=== PATIENT | male | born 1945 | race Caucasian/White ===

== ENCOUNTER 2018-07-22 10:24 | Outpatient (CLI) | payer MEDICARE ==
--- NOTE | 2018-07-22 11:37 | RAD ---
CHEST 2 VIEWS: Date: 07/22/18 HISTORY: Productive cough. COMPARISON: 05/17/18. FINDINGS: Atherosclerosis of aorta. Normal cardiac silhouette. Pulmonary vessels and hilum are normal. Costophr enic angles are clear. No consolidation or masses. Lungs are hyperinflated. No pneumothorax or osseou s abnormalities. Stable stent projecting over the left axilla. IMPRESSION: 1. Hyperinflation. Chronic changes. No acute cardiopulmonary process. 2. Atherosclerosis. POS: [facility]
== END 2018-07-22 10:25 | disposition home or self-care (01) ==
LOC: BICRAD 10:24
PROVIDERS: ATTEND Internal Medicine Nephrology
DX: R05 Cough (principal); I70.0 Atherosclerosis of aorta; R91.8 Other nonspecific abnormal finding of lung field
CPT/HCPCS: 71046

== ENCOUNTER 2019-01-11 09:35 | Emergency (ER) | payer MEDICARE ==
[2019-01-11] MEDS ORDERED: Lidocaine 1% w/Epinephrine 1:100K 20 ML VIAL ONE (09:46)
== END 2019-01-11 10:57 | disposition home or self-care (01) ==
LOC: ERS 09:35
DX: T82.838A Hemorrhage due to vascular prosthetic devices, implants and grafts, initial encounter (principal); F17.210 Nicotine dependence, cigarettes, uncomplicated
CPT/HCPCS: 85025; 99284; J2001

== ENCOUNTER 2019-05-06 21:24 | Emergency (ER) | payer MEDICARE ==
--- NOTE | 2019-05-06 22:08 | RAD ---
Portable frontal chest radiograph: 05/06/2019 COMPARISON: 07/22/2018 HISTORY: Productive cough with shortness of breath FINDINGS: Heart and mediastinal contours are stable. Stable atherosclerotic calcification of the aort ic arch. Stent material is seen in the left axillary region. No focal consolidation or alveolar edema. IMPRESSION: No acute findings.
[2019-05-06 22:13] LABS: #Basophils 0.1 thou/uL (0.0-0.2); #Eosinphils 0.3 thou/uL (0.0-0.7); #Lymphocytes 1.9 thou/uL (1.20-3.40); #Neutrophils 3.9 thou/uL (1.40-6.50); %Basophils 1.2 % (0.0-1.0); %Eosinophils 3.9 % (0.0-10.0); %Lymphocytes 26.4 % (21.0-51.0); %Monocytes 14.2 % (0.0-10.0); %Neutrophils 54.3 % (42.0-75.0); Hemoglobin 10.1 g/dL (14.0-18.0); Mean Corpuscular HGB CONC 31.8 g/dL (32.0-36.0); Mean Corpuscular Hemoglobin 29.9 pg (27.0-31.0); Mean Corpuscular Volume 94.1 fL (78.0-98.0); Mean Platelet Volume 8.6 fL (7.4-10.4); Platelet Count 167 thou/uL (130-400); RBC Distribution Width 13.7 % (11.5-14.5); White Blood Cell (WBC) Count 7.3 thou/uL (4.8-10.8)
[2019-05-06 22:36] LABS: ALT (SGPT) 10 U/L (8-55); AST (SGOT) 16 U/L (5-34); Alkaline Phosphatase 66 U/L (40-150); Anion Gap 12 mmol/L (10-20); BUN (Urea Nitrogen) 28 mg/dL (8.4-25.7); Bilirubin, Total 0.6 mg/dL (0.2-1.2); Calc. Creatinine Clearance 0 mL/min (70-130); Calcium 11.1 mg/dL (7.8-10.44); Carbon Dioxide 36 mmol/L (23-31); Chloride 97 mmol/L (98-107); Estimated GFR-MDRD 6; Globulin 2.9 g/dL (2.4-3.5); Glucose 76 mg/dL (83-110); Potassium 3.8 mmol/L (3.5-5.1); Protein, Total 6.9 g/dL (5.8-8.1); Sodium 141 mmol/L (136-145)
[2019-05-06 22:58] LABS: CKMB 1.2 ng/mL (0-6.6)
--- NOTE | 2019-05-07 12:13 | EKG ---
Test Reason : Blood Pressure : / mmHG Vent. Rate : 068 BPM Atrial Rate : 068 BPM P-R Int : 176 ms QRS Dur : 082 ms QT Int : 434 ms P-R-T Axes : 077 -32 076 degrees QTc Int : 461 ms Normal sinus rhythm Left axis deviation Septal infarct , age undetermined Abnormal ECG Confirmed by ANNEMARIE AGUSTIN D.O. ([id number]), editor city JULIUS VARGHESE ([id number]) on 05/07/2019 12:13:01 PM Referred By: Confirmed By:ANNEMARIE AGUSTIN D.O.
== END 2019-05-06 23:55 | disposition home or self-care (01) ==
LOC: ERS 21:24
DX: J20.9 Acute bronchitis, unspecified (principal); I13.2 Hypertensive heart and chronic kidney disease with heart failure and with stage 5 chronic kidney disease, or end stage renal disease; I50.9 Heart failure, unspecified; N18.6 End stage renal disease; Z87.891 Personal history of nicotine dependence; Z79.899 Other long term (current) drug therapy; Z79.82 Long term (current) use of aspirin
CPT/HCPCS: 71045; 80053; 82553; 83880; 84484; 85025; 93005; 94640; J7620

== ENCOUNTER 2019-08-22 21:51 | Inpatient (IN) | payer MEDICARE ==
[2019-08-22] MEDS ORDERED: Albuterol Sulfate 2.5 mg/0.5 ml Neb ONE (22:06)
[2019-08-22] MEDS ORDERED: Dexamethasone 10 MG/ML VIAL ONE (22:07)
[2019-08-22] MEDS ORDERED: Magnesium 2 GM/50 ML BAG (IN WATER) ONE (22:07)
[2019-08-22 22:31] LABS: #Eosinphils 0.3 thou/uL (0.0-0.7); #Lymphocytes 1.6 thou/uL (1.20-3.40); #Monocytes 0.7 thou/uL (0.11-0.59); %Basophils 0.3 % (0.0-1.0); %Eosinophils 4.5 % (0.0-10.0); %Lymphocytes 20.2 % (21.0-51.0); %Monocytes 9.5 % (0.0-10.0); %Neutrophils 65.5 % (42.0-75.0); Hemoglobin 8.6 g/dL (14.0-18.0); Mean Corpuscular HGB CONC 32.1 g/dL (32.0-36.0); Mean Corpuscular Hemoglobin 30.3 pg (27.0-31.0); Mean Corpuscular Volume 94.5 fL (78.0-98.0); Mean Platelet Volume 9.2 fL (7.4-10.4); Platelet Count 138 thou/uL (130-400); RBC Distribution Width 14.2 % (11.5-14.5); Red Blood Cell (RBC) Count 2.84 mill/uL (4.70-6.10); White Blood Cell (WBC) Count 7.7 thou/uL (4.8-10.8)
[2019-08-22 22:32] LABS: Actual Bicarbonate (HCO3a) 30.2 mEq/L (22-28); Analyzer IN Cardio ER; Base Excess (BEa) 5.5 mEq/L (-2.0 to +3.0); CO2 Tension 44.9 mmHg (35.0-45.0); Calcium, Ionized 1.11 mmol/L (1.12-1.30); Carboxyhemoglobin (COHb) 0.8 gm% (0.0-3.0); Hemoglobin (Hb) 8.5 g/dL (14.0-18.0); O2 Tension (PaO2) 96.8 mmHg (> 70.0); Potassium - ABG Lab 3.49 mmol/L (3.70-5.30); pH, Arterial 7.45 (7.35-7.45)
[2019-08-22 22:33] LABS: Puncture Site RR
[2019-08-22 22:34] LABS: ALV-art Gradient 46.715 (0-20)
[2019-08-22 22:56] LABS: ALT (SGPT) 8 U/L (8-55); AST (SGOT) 12 U/L (5-34); Albumin 3.9 g/dL (3.4-4.8); Alkaline Phosphatase 77 U/L (40-110); Anion Gap 18 mmol/L (10-20); BUN (Urea Nitrogen) 46 mg/dL (8.4-25.7); CK (CPK) 51 U/L (30-200); Calc. Creatinine Clearance 0 mL/min (70-130); Calcium 9.3 mg/dL (7.8-10.44); Carbon Dioxide 31 mmol/L (23-31); Chloride 97 mmol/L (98-107); Estimated GFR-MDRD 5; Globulin 3.2 g/dL (2.4-3.5); Glucose 92 mg/dL (83-110); Lipase 31 U/L (8-78); Potassium 3.6 mmol/L (3.5-5.1); Protein, Total 7.1 g/dL (5.8-8.1); Sodium 142 mmol/L (136-145)
--- NOTE | 2019-08-22 22:56 | PDOC.FPRHP ---
- History of Present Illness Chief Complaint: SOB History of Present Illness: Mr. Vazquez is a 74yoM who presents to the ED for increasing SOB. He has had progressively worsening cough and shortness of breath for the last 6 months. He states that the cough improves with Mucinex, but the shortness of breath acutely worsened today prompting him to come to the ED. He states he has a known history of COPD and was a smoker up until 7 days ago. He has been using 1L O2 NC at home for the last month. He has a history of NIKHIL but lost his CPAP 3 years ago when he moved. He denies any recent illnesses or sick contacts. ED Course: Decadron, Magnesium sulfate, Albuterol, Duoneb, 1L NS, Levaquin 750mg - Allergies/Adverse Reactions Allergies Allergy/AdvReac Type Severity Reaction Status Date / Time codeine Allergy Verified 08/23/19 01:35 Penicillins Allergy Verified 08/23/19 01:35 - Home Medications Medication Instructions Recorded Confirmed Type Amlodipine [Norvasc] 10 mg PO DAILY 08/23/19 08/23/19 History Calcium Acetate [Phoslo] 2 tab PO TID-WM 08/23/19 08/23/19 History Carvedilol 25 mg PO TID 08/23/19 08/23/19 History Famotidine 20 mg PO DAILY 08/23/19 08/23/19 History Pantoprazole [Protonix] 40 mg PO DAILY 08/23/19 08/23/19 History hydrALAZINE HCl [Hydralazine HCl] 50 mg PO TID 08/23/19 08/23/19 History - History PMHx: COPD ESRD on HD - Dr. Pope HTN GERD NIKHIL, untreated PSHx: L forearm fistula Ex lap FHx: Mom- HTN Social: Current tobacco user, hasn't been smoking much lately - trying to quit. States quit 7 days ago. Up to 3 packs a week since age 8. Former alcohol use, quit in 2012. Denies illicit drug use. - Review of Systems General: denies: fever/chills, weight/appetite/sleep changes, night sweats, fatigue Eyes: denies: eye pain, vision changes ENT: reports: nasal congestion, rhinorrhea Respiratory: reports: cough, shortness of breath, exercise intolerance Cardiovascular: denies: chest pain, palpitation, edema, paroxysmal nocturnal dyspnea, orthopnea Gastrointestinal: denies: nausea, vomiting, diarrhea, constipation Genitourinary: denies: dysuria, polyuria Skin: denies: rashes, lesions, jaundice Musculoskeletal: denies: pain, tenderness, stiffness Neurological: denies: numbness, syncope, weakness - Vital signs Pulse: 73, Temp: 98.4 (Oral), O2 sat: 96 on (2L Oxygen), Time: 08/22/2019 21:56. Wt: 87kg - Physical Exam Constitutional: NAD, awake, alert and oriented, well developed -Constitutional: Visibly short of breath, speaking in short phrases HEENT: normocephalic and atraumatic, PERRLA, EOMI, conjunctiva clear, grossly normal vision, grossly normal hearing, MMM Neck: supple, trachea midline Chest: no-tender to palpation Heart: pulses present, no edema -Heart: Difficult to auscultate due to breathing treatment and prominent wheezes. RRR on the radiation monitor Lungs: good air movement -Lungs: Diffuse, prominent expiratory wheezes heard throughout. Abdomen: soft, non-tender, bowel sounds present Musculoskeletal: normal structure, normal tone Neurological: no focal deficit, CN II-XII intact Skin: no rash/lesions, good turgor Heme/Lymphatic: no unusual bruising or bleeding, no purpura, no petechia Psychiatric: normal mood and affect, good judgment and insight FMR H&P: Results - Labs Result Diagrams: 08/22/19 22:20 08/22/19 22:20 Lab results: WBC 7.7 thou/uL (4.8-10.8) 08/22/19 22:20 Hgb 8.6 g/dL (14.0-18.0) L 08/22/19 22:20 Hct 26.9 % (42.0-52.0) L 08/22/19 22:20 MCV 94.5 fL (78.0-98.0) 08/22/19 22:20 Plt Count 138 thou/uL (130-400) 08/22/19 22:20 Neutrophils % 65.5 % (42.0-75.0) 08/22/19 22:20 ABG pH 7.45 (7.35-7.45) 08/22/19 22:23 ABG pCO2 44.9 mmHg (35.0-45.0) 08/22/19 22:23 ABG pO2 96.8 mmHg (> 70.0) H 08/22/19 22:23 Lactic Acid 0.6 mmol/L (0.5-2.2) 08/22/19 22:20 - EKG Interpretation EKG: NSR - Radiology Interpretation Chest x-ray Status: report reviewed by me (IMPRESSION: Minimal patchy density medial left lung base which may represent atelectasis versus developing pneumonitis. Follow- up chest x-ray is recommended to ensure resolution.) FMR H&P: A/P - Problem List (1) COPD exacerbation Current Visit: Yes Status: Acute Code(s): J44.1 - CHRONIC OBSTRUCTIVE PULMONARY DISEASE W (ACUTE) EXACERBATION (2) HTN (hypertension) Current Visit: Yes Status: Acute Code(s): I10 - ESSENTIAL (PRIMARY) HYPERTENSION (3) ESRD on dialysis Current Visit: Yes Status: Acute Code(s): N18.6 - END STAGE RENAL DISEASE; Z99.2 - DEPENDENCE ON RENAL DIALYSIS (4) GERD (gastroesophageal reflux disease) Current Visit: Yes Status: Acute Code(s): K21.9 - GASTRO-ESOPHAGEAL REFLUX DISEASE WITHOUT ESOPHAGITIS - Plan COPD exacerbation - CXR shows minimal patchy density. Recommends f/u chest x-ray to monitor for improvement. Repeat tomorrow. - Will treat with IV Levaquin (dosed for dialysis), Prednisone, and scheduled DuoNebs with Albuterol Nebs prn. - Flu negative ESRD on HD - Dr. Pope is his customer account administrator. He usually has HD on . Will consult and plan for HD tomorrow. - Continue Phoslo HTN - Will continue home medications (Coreg, Hydralazine and Amlodipine) GERD - Will continue PPI NIKHIL - Currently untreated. Recommend f/u outpatient to reestablish care with party director for CPAP. Disposition/LOS: Dispo: Stable, inpatient, likely LOS > 48 hours. Code: Full VTE: SCDs FMR H&P: Upper Level - Pertinent history 74 year old AA male presents with worsening shortness of breath prior to arrival. He states that he has had a cough for 6 months that has recently been well controlled with mucinex. He states that he has had a worsening cough with rhinorrhea for the last several days, however. He denies fever, chills, chest pain. He states that he quit smoking 7 days ago but smoked a pack q3 days since age 8 years old. He also has untreated NIKHIL as of three years now. He lost his CPAP machine in a move three years ago. He had his take him to the hospital. He states the nebulizer treatments are helping. He denies sick contacts. He states that he has not needed home O2 until about a month ago. - Pertinent findings General: Alert and oriented x3. No acute distress HEENT: MMM. Card: RRR, heart sounds difficult to appreciate due to wheezing Resp: Diffuse expiratory wheezing, nebulizer being given during exam Abdomen: Soft, nontender Ext: No cyanosis or edema - Plan Date/Time: 08/22/19 5036 I, Kia Meng, have evaluated this patient and agree with findings/plan as outlined by post graduate internship resident. Pertinent changes/additions are listed here. Acute COPD exacerbation - Longstanding history of COPD - AB.45/44.9/96.8 on 2L NC - Continue q3h Duoneb treatments with albuterol PRN in between; space out as respiratory status improves - Will start levoquin renally dosed - Prednisone 40 mg PO x5 days - Monitor respiratory status - CXR with no obvious infiltrates - Continued smoking cessation recommended ESRD on HD T, TH, S - Consult Dr. Segovia in AM for dialysis - Continue home medications - Dose medications for HD HTN - Continue home medications GERD - Continue home medications Elevated troponin - Mildly elevated, likely 2/2 renal disease - Will not trend at this time Normocytic anemia - Likely 2/2 ESRD - Uncertain if patient is getting epogen - Will do iron studies to further evaluate as I do not see a previous workup NIKHIL, untreated - Recommend outpatient sleep study for titration of CPAP - Recommend follow up with party director DVT PPX: SCD's Code status: Full Dispo: Admit to medical. Anticipate LOS >48 hours. Addendum - Attending - Attending Attestation Date/Time: 08/23/19 9209 I personally evaluated the patient and discussed the management with Dr. Walker on 08/22/2019 I agree with the History, Examination, Assessment and Plan documented above with any addition or exceptions noted below - 74yo M with h/o HTN, ESRD on HD, COPD, HLD, and NIKHIL presented to the ED for increasing SOB for 1 day. He has had progressively worsening cough and shortness of breath for the last 6 months. He states that the cough improves with Mucinex. He has been using 1L O2 NC at home for the last month. He has a history of NIKHIL but lost his CPAP 3 years ago when he moved. He denies fever/chills, nasal congestion or ill contacts. PMH/PSH/Meds /SH reviewed and agree with resident's documentation. Afebrile BP 147/60 P65 RR18 98% on 2L NC Exam repeated by me and agree with resident's findings. Labs : WBC=7.7, H/H=8.6/26.9, Mfx=878, Xa=124, K=3.6, Cl=97, CO2=31, BUN/Cr=46/12.84 , Gluc=92, LPR=138.7 A/P: 1) Acute hypoxic respiratory failure secondary to COPD exacerbation - initial O2 sats 78% now improved to 94% in ER. 2) COPD exacerbation- Continue scheduled nebs, steroids. 3) ESRD- will consult nephrology for maintenance HD, 4) Normocytic anemia- check iron stidies; most likely anemia of chronic disease due to ESRD. 5) NIKHIL- will need outpatient sleep study and eval
[2019-08-22 23:16] LABS: CKMB 1.2 ng/mL (0-6.6)
--- NOTE | 2019-08-22 23:22 | RAD ---
EXAM: CHEST ONE VIEW HISTORY: Shortness of breath and wheezing. Dyspnea. COMPARISON: 05/06/2019 FINDINGS: Cardiac silhouette is magnified by projection but stable in size. The pulmonary vasculature is within normal limits. Minimal patchy density is seen at the medial left lung base which may represent atelectasis, focal pneumonitis cannot be excluded. The lungs are otherwise clear. Vascular stent agai n overlies the left axillary vessels. Degenerative changes are again noted in the spine. Vascular calcifications are seen in the thoracic aorta. IMPRESSION: Minimal patchy density medial left lung base which may represent atelectasis versus developing pneumo nitis. Follow-up chest x-ray is recommended to ensure resolution.
[2019-08-23] MEDS ORDERED: Ondansetron ODT 4 MG TAB PO PRN (00:51)
[2019-08-23] MEDS ORDERED: Albuterol Sulfate 2.5 mg/3 ml Neb NEB PRN (00:51)
[2019-08-23] MEDS ORDERED: Acetaminophen 325 MG TAB PO PRN (00:51)
[2019-08-23] MEDS ORDERED: Calcium Carbonate 500 MG ChewTAB PO PRN (00:51)
[2019-08-23 02:11] VITALS: BMI 26.2
[2019-08-23 06:11] LABS: Iron 51 ug/dL (65-175); Iron Binding Capacity, Total 145 mcg/dL (261-462)
[2019-08-23 06:32] LABS: Ferritin 822.02 ng/mL (22-322)
[2019-08-23] MEDS ORDERED: predniSONE 20 MG TAB PO SCH (08:00)
--- NOTE | 2019-08-23 08:53 | RAD ---
Portable frontal chest radiograph: 08/23/2019 COMPARISON: 08/22/2019 HISTORY: COPD exacerbation FINDINGS: No pneumothorax. Mild pulmonary vascular prominence. Mild nonspecific increased linear dens ity noted in the medial right lung base. There is nonspecific increased density in the medial left lung base/left cardiophrenic angle, slightl y worsened when compared to prior imaging. Vascular stent material overlies the subclavian region on the left. IMPRESSION: Linear density in both lung bases, left greater than right. Findings may be related to vo lume loss or infectious pneumonitis. Recommend PA and lateral imaging of the chest for full assessment.
[2019-08-23] MEDS ORDERED: Amlodipine 10 MG TAB PO SCH (09:00)
[2019-08-23] MEDS ORDERED: guaiFENesin ER 600 MG TAB PO SCH (09:00)
[2019-08-23] MEDS ORDERED: Famotidine 20 MG TAB PO SCH (09:00)
[2019-08-23] MEDS: Calcium Acetate 667 MG CAP PO SCH ×3 (09:03→15:22)
[2019-08-23] MEDS: hydrALAZINE 25 MG TAB PO SCH ×2 (09:04→15:22)
[2019-08-23] MEDS: Carvedilol 25 MG TAB PO SCH ×2 (09:04→15:22)
--- NOTE | 2019-08-23 09:12 | PDOC.FM ---
- Subjective Subjective: Pt reports SOB has improved since admission, no new complaints, denies fever/ chills, cough has improved, he states his cough has never been productive. - Objective Vital Signs & Weight: Vital Signs (12 hours) Temp Pulse Resp BP Pulse Ox 08/23/19 09:04 63 08/23/19 09:03 63 08/23/19 08:00 97.8 F 63 18 175/68 H 98 08/23/19 06:51 98 08/23/19 06:49 65 18 98 08/23/19 05:48 97.9 F 73 20 147/60 H 97 08/23/19 03:32 95 08/23/19 03:06 65 18 97 08/23/19 02:40 94 L 08/23/19 02:19 97.7 F 65 20 156/63 H 94 L Weight Weight 80.558 kg Result Diagrams: 08/22/19 22:20 08/22/19 22:20 Phys Exam - Physical Examination Constitutional: NAD HEENT: moist MMs, sclera anicteric Neck: no nodes, no JVD Respiratory: no rales, wheezing present Cardiovascular: RRR, no significant murmur Gastrointestinal: soft, non-tender Musculoskeletal: no edema, pulses present Neurological: normal sensation, moves all 4 limbs Psychiatric: normal affect, A&O x 3 Skin: no rash, normal turgor Dx/Plan (1) COPD exacerbation Code(s): J44.1 - CHRONIC OBSTRUCTIVE PULMONARY DISEASE W (ACUTE) EXACERBATION Status: Acute (2) Anemia in chronic illness Code(s): D63.8 - ANEMIA IN OTHER CHRONIC DISEASES CLASSIFIED ELSEWHERE Status : Acute (3) Anemia in chronic kidney disease, on chronic dialysis Code(s): N18.6 - END STAGE RENAL DISEASE; D63.1 - ANEMIA IN CHRONIC KIDNEY DISEASE; Z99.2 - DEPENDENCE ON RENAL DIALYSIS Status: Acute (4) ESRD on dialysis Code(s): N18.6 - END STAGE RENAL DISEASE; Z99.2 - DEPENDENCE ON RENAL DIALYSIS Status: Acute (5) GERD (gastroesophageal reflux disease) Code(s): K21.9 - GASTRO-ESOPHAGEAL REFLUX DISEASE WITHOUT ESOPHAGITIS Status: Acute (6) HTN (hypertension) Code(s): I10 - ESSENTIAL (PRIMARY) HYPERTENSION Status: Acute - Plan Plan: Acute COPD exacerbation A- Longstanding history of COPD. on admission AB.45/44.9/96.8 on 2L NC P- Continue q3h Duoneb treatments with albuterol PRN in between; space out as respiratory status improves -continue levoquin renally dosed -Prednisone 40 mg PO x5 days -Continued smoking cessation recommended Bilateral lung infiltrate A- linear infiltrate, infectious pneumonitis vs. fluid related P- AP and lateral CXR today Anemia of chronic disease A- iron studies indicate anemia of chronic disease, likely also related to ESRD P- monitor h/h while in house, transfuse as necessary ESRD on HD T, TH, S -continue dialysis HTN -Continue home medications GERD -Continue home medications Elevated troponin -Mildly elevated, likely 2/2 renal disease. Will not trend at this time NIKHIL, untreated -Recommend outpatient sleep study for titration of CPAP. recommend follow up with chemistry lab instructor DVT PPX: SCD's Code status: Full Addendum - Attending - Attending Attestation Date/Time: 08/23/19 4341 I personally evaluated the patient and discussed the management with the team. I agree with the History, Examination, Assessment and Plan documented above with any addition or exceptions noted below. Seen in dialysis. Says he feels great and is ready to go home. He has scant expiratory wheezes. Would continue steroids + nebs and likely dc this PM.
--- NOTE | 2019-08-23 13:20 | CON ---
DATE OF CONSULTATION: 08/23/2019 CONSULTING PHYSICIAN: Dr. Lewis. REASON FOR CONSULTATION: End-stage renal disease evaluation and care. REASON FOR ADMISSION: Shortness of breath. HISTORY OF PRESENT ILLNESS: This is a 74-year-old male with history of COPD, ESRD, hypertension, GERD, obstructive sleep apnea, came to the hospital with shortness of breath. He has been treated for COPD exacerbation and gets dialysis Thursday, , and Thursday, and due for dialysis today. Nephrology was consulted. The patient was seen during dialysis, tolerating well, is feeling better. No chest pain or palpitation. No fever or chills. No nausea or vomiting. PAST MEDICAL HISTORY: Positive for end-stage renal disease, on TTS; COPD; hypertension; GERD; and NIKHIL. PAST SURGICAL HISTORY: Left arm fistula and exploratory laparotomy. HOME MEDICATIONS: Reviewed. ALLERGIES: TO CODEINE, PENICILLIN. SOCIAL HISTORY: No smoking, alcohol, or illicit drugs. FAMILY HISTORY: No history of kidney disease. REVIEW OF SYSTEMS: CONSTITUTIONAL: Negative for weight loss or gain, ability to conduct usual activities. SKIN: Negative for rash, itching. EYES: Negative for double vision, pain. ENT/MOUTH: Negative for nose bleeding, neck stiffness, pain, tenderness. CARDIOVASCULAR: Negative for palpitations, dyspnea on exertion, orthopnea. RESPIRATORY: Negative for shortness of breath, wheezing, cough, hemoptysis, fever or night sweats. GASTROINTESTINAL: Negative for poor appetite, abdominal pain, heartburn, nausea, vomiting, constipation, or diarrhea. GENITOURINARY: Negative for urgency, frequency, dysuria, nocturia. MUSCULOSKELETAL: Negative for pain, swelling. NEUROLOGIC/PSYCHIATRIC: Negative for anxiety, depression. ALLERGY/IMMUNOLOGIC: Negative for skin rash, bleeding tendency. PHYSICAL EXAMINATION: GENERAL: This is a well-built male, in no apparent distress. VITAL SIGNS: Temperature 97.8, pulse 63, respiratory rate 18, blood pressure 175/68. HEENT: Atraumatic, normocephalic. Oral mucosa is moist. NECK: Supple. CV: S1 and S2. Rate and rhythm regular. RESPIRATORY: Clear. GASTROINTESTINAL: Abdomen is soft. MUSCULOSKELETAL: 1+ edema. DERMATOLOGIC: No skin rash. NEUROLOGIC: Alert and awake. PSYCHIATRIC: Mood and affect normal. LABORATORY DATA: Hemoglobin is 8.6. Potassium is 3.6, BUN is 46, and creatinine is 2.8. ASSESSMENT AND PLAN: 1. End-stage renal disease, continue on dialysis as tolerated. 2. Edema, controlled. 3. History of hypertension. 4. Anemia of chronic disease. 5. Chronic obstructive pulmonary disease, per primary team. The patient is seen during dialysis, tolerating well. Continue dialysis Thursday, , and Thursday as tolerated. Thank you for the consult. Job ID: [id number]
[2019-08-23 17:01] VITALS: BP 169/69; TEMP 97.7
--- NOTE | 2019-08-24 10:00 | PQF ---
Moni Vazquez Jr, ANNA MD [id number] CLINICAL DOCUMENTATION CLARIFICATION FORM: POST DISCHARGE Addendum to original discharge summary date: ____ Late entry note date: __ DATE:08/24/2019 ATTN: JESUS OCONNELL MD Please exercise your independent, professional judgment in responding to the clarification form. Clinical indicators are provided on the bottom of this form for your review Please check appropriate box(s) to clarify if the following diagnosis has been ruled in or ruled out:Pneumonia [ ] Ruled in diagnosis [ ] Continue to treat [ ] Resolved [ ] Ruled out diagnosis [ ] Cannot rule out diagnosis [ ] Other diagnosis [ ] Unable to determine In addition, please specify: Present on Admission (POA): [ ] Yes [ ] No [ ] Unable to determine For continuity of documentation, please document condition throughout progress notes and discharge summary. Thank You. CLINICAL INDICATORS - SIGNS / SYMPTOMS / LABS Pneumonia with hypoxia-Documented in ED 08/22 by Riley Shafer He has had progressively worsing cough and SOB for the last 6 months-Documented in H&P on 08/22 by Demetria Walker MD COPD Exacerbation -Documented in H&P on 08/22 by Demetria Walker MD CXR shows minimal patchy density. recommends f/u chest x ray to monitor for improvement.Repeat tomorrow-Documented in H&P on 08/22 by Demetria Walker MD CXR with no obvious infiltrates-Documented in H&P on 08/22 by Demetria Walker MD Acute hypoxic respiratory failure secondary to COPD exacerbation-Documented in H &P on 08/22 by Demetria Walker MD Minimal patchy density medial left lung base which may represent atelectasis versus developing pneumonitis-Documented in Chest Xray on 08/22 RISK FACTORS Acute hypoxic respiratory failure secondary to COPD exacerbation-Documented in H &P on 08/22 by Demetria Walker MD TREATMENTS Will treat with IV Levaquin-Documented in H&P on 08/22 by Demetria Walker MD Monitor respiratory status-Documented in H&P on 08/22 by Demetria Walker MD Continued smoking cessation recommended -Documented in H&P on 08/22 by Demetria Walker MD (This form is maintained as a part of the permanent medical record) 2014 [employer]. All Rights Reserved [email or web address] [not provided] MTDD
--- NOTE | 2019-08-24 10:37 | DIS ---
DATE OF ADMISSION: 08/22/2019 DATE OF DISCHARGE: 08/23/2019 RESIDENT: Javier Ballard MD. ADMITTING ATTENDING: Sofya Steinberg MD. DISCHARGE ATTENDING: Tony Mix MD. CONSULTS: None. PROCEDURES: 1. On 07/22/2020, chest x-ray. Impression: Minimal patchy density medial left lung base, which may represent atelectasis versus developing of pneumonitis. Chest x -ray was recommended to ensure resolution. 2. On 08/23/2019, chest x-ray. Impression: Linear density in both lung bases, left greater than right. Findings may be related to volume loss or infectious pneumonitis. Recommend PA and lateral imaging of the chest for full assessment. DISCHARGE MEDICATIONS: 1. Albuterol nebulization q.2 hours p.r.n. 2. Mucinex 600 mg p.o. q.12 hours, resumed at home. 3. Dulera inhaler 2 puffs inhaled b.i.d. 4. Prednisone 40 mg p.o. daily for 4 more days. 5. Calcium acetate 2 tabs p.o. t.i.d. 6. Famotidine 20 mg p.o. daily. 7. Carvedilol 25 mg p.o. t.i.d. 8. Protonix 20 mg p.o. daily. 9. Hydralazine 5 mg p.o. t.i.d. 10. Amlodipine 10 mg p.o. daily. DISCONTINUED MEDICATIONS: None. PRIMARY DIAGNOSIS: Chronic obstructive pulmonary disease exacerbation. SECONDARY DIAGNOSES: 1. Bilateral lung infiltrate. 2. Anemia of chronic disease. 3. End-stage renal disease, on hemodialysis. 4. Hypertension. 5. Elevated troponins. 6. Obstructive sleep apnea. HISTORY OF PRESENT ILLNESS/HOSPITAL COURSE: This is a 74-year-old male who presented to the hospital and was admitted for COPD exacerbation. He was given Solu-Medrol and started on scheduled p.r.n. DuoNebs. The patient recovered very quickly and returned to baseline within 12 hours with this treatment alone and deemed stable for discharge home with increased regimen on COPD. Currently, he had only albuterol and was on 1 L of oxygen at baseline and so Dulera was sent in for dual LAMA and LABA inhaler. Otherwise, hospital course was complicated by a chest x-ray, which showed possible infiltrate and recommended repeat chest x-ray as listed above. However, clinical exam was benign and the patient showed no signs or symptoms of infection. So, he was discharged home without antibiotics. DISPOSITION: Stable. DISCHARGE INSTRUCTIONS: Location: Home. Activity: As tolerated. Followup: Follow up with PCP in 7 days. Diet: Heart healthy dilated diet. Job ID: [id number] MTDD
[2019-08-25 16:09] LABS: Hematocrit 24.4 % (37.5-51.0); RBC Folate Test Component 939 ng/mL (>498)
== END 2019-08-23 17:21 | disposition home or self-care (01) | DRG 189 ==
LOC: ERS 21:51 → T4-B 23:06
PROVIDERS: ADMIT Family Medicine; ATTEND Family Medicine
DX: J96.01 Acute respiratory failure with hypoxia (principal); N18.6 End stage renal disease; J44.1 Chronic obstructive pulmonary disease with (acute) exacerbation; I12.0 Hypertensive chronic kidney disease with stage 5 chronic kidney disease or end stage renal disease; D63.1 Anemia in chronic kidney disease; K21.9 Gastro-esophageal reflux disease without esophagitis; Z99.2 Dependence on renal dialysis; G47.33 Obstructive sleep apnea (adult) (pediatric); Z88.5 Allergy status to narcotic agent; Z88.0 Allergy status to penicillin; F17.200 Nicotine dependence, unspecified, uncomplicated; R91.8 Other nonspecific abnormal finding of lung field
CPT/HCPCS: 36415; 71045; 80053; 82550; 82553; 82607; 82728; 82747; 82805; 83540; 83550; 83605; 83690; 83880; 84484; 85014; 85025; 87040; 87804; 90935; 93005; 94640; 94644; 96365; 96366; 96367; 96375; G0257; J1100; J1956; J3475; J7611; J7620

== ENCOUNTER 2019-12-19 17:22 | Emergency (ER) | payer MEDICARE ==
[~2019-12-19 17:22] MED LIST: Iopamidol-370 76% 500 ML 1 ML ONE
[2019-12-19] MEDS ORDERED: Ondansetron PF 4 MG/2 ML Vial ONE (18:00)
[2019-12-19] MEDS ORDERED: Morphine 4 MG/ML VIAL ONE (18:00)
[2019-12-19 18:37] LABS: #Basophils 0.1 thou/uL (0.0-0.2); #Eosinphils 0.3 thou/uL (0.0-0.7); #Lymphocytes 1.1 thou/uL (1.20-3.40); #Monocytes 0.6 thou/uL (0.11-0.59); #Neutrophils 4.4 thou/uL (1.40-6.50); %Eosinophils 4.7 % (0.0-10.0); %Lymphocytes 16.9 % (21.0-51.0); %Monocytes 9.3 % (0.0-10.0); %Neutrophils 68.2 % (42.0-75.0); Hemoglobin 9.7 g/dL (14.0-18.0); Mean Corpuscular HGB CONC 31.9 g/dL (32.0-36.0); Mean Corpuscular Hemoglobin 30.1 pg (27.0-31.0); Mean Corpuscular Volume 94.5 fL (78.0-98.0); Mean Platelet Volume 10.8 fL (7.4-10.4); Platelet Count 121 thou/uL (130-400); RBC Distribution Width 17.9 % (11.5-14.5); Red Blood Cell (RBC) Count 3.23 mill/uL (4.70-6.10); White Blood Cell (WBC) Count 6.4 thou/uL (4.8-10.8)
[2019-12-19 18:59] LABS: ALT (SGPT) 22 U/L (8-55); AST (SGOT) 59 U/L (5-34); Albumin 3.9 g/dL (3.4-4.8); Alkaline Phosphatase 79 U/L (40-110); Anion Gap 16 mmol/L (10-20); BUN (Urea Nitrogen) 33 mg/dL (8.4-25.7); Bilirubin, Total 1.8 mg/dL (0.2-1.2); CK (CPK) 72 U/L (30-200); Calc. Creatinine Clearance 0 mL/min (70-130); Calcium 9.2 mg/dL (7.8-10.44); Carbon Dioxide 32 mmol/L (23-31); Chloride 98 mmol/L (98-107); Estimated GFR-MDRD 5; Globulin 2.8 g/dL (2.4-3.5); Glucose 98 mg/dL (83-110); Lipase 25 U/L (8-78); Potassium 3.4 mmol/L (3.5-5.1); Protein, Total 6.7 g/dL (5.8-8.1); Sodium 143 mmol/L (136-145)
--- NOTE | 2019-12-19 19:44 | CT ---
CT ABDOMEN WITH CONTRAST CT PELVIS WITH CONTRAST: DATE: 12-19-2019 HISTORY: 74-year-old male with right upper quadrant and right lower quadrant abdominal pain with nausea and co nstipation. Chronic renal failure. Patient on dialysis. COMPARISON: Noncontrast CT 04-28-16 FINDINGS: A large number of small cysts throughout the bilateral upper, mid, and lower pole parenchyma. Heavy a therosclerotic calcification of abdominal aorta, iliac arteries, and left renal artery. New finding of mild distention of gallbladder without pericholecystic edema. No hydronephrosis. Mild edema following the portal vein branches in the liver. Small hypodense lesion in the spleen, stable a nd benign. No splenomegaly. Unremarkable pancreas. Mild adrenal hyperplasia without definite discrete mass. Sigmoid and descending colonic diverticulosis without convincing evidence of diverticulitis. M ild diffuse fat stranding throughout the pelvic cavity, peritoneal cavity, and retroperitoneum, consi stent with edema, similar to prior CT. Appendix visualized. No convincing evidence of acute appendici tis. No abscess, pneumoperitoneum, or small bowel dilation. Empty urinary bladder. Diffuse mild anasa rca. No consolidation at lung bases or pleural effusion. IMPRESSION: 1. Distended gallbladder. 2. Mild edema throughout the abdominal cavity and minimal anasarca, probably related to chronic renal failure. 3. Very large number of small bilateral renal cysts. YEFRI Feliciano POS: [facility]
== END 2019-12-19 19:45 | disposition home or self-care (01) ==
LOC: ERS 17:22
DX: R10.9 Unspecified abdominal pain (principal); E11.22 Type 2 diabetes mellitus with diabetic chronic kidney disease; I13.2 Hypertensive heart and chronic kidney disease with heart failure and with stage 5 chronic kidney disease, or end stage renal disease; I50.9 Heart failure, unspecified; N18.6 End stage renal disease; F17.210 Nicotine dependence, cigarettes, uncomplicated; Z79.899 Other long term (current) drug therapy
CPT/HCPCS: 74177; 80053; 82550; 83605; 83690; 85025; 96374; 96375; J2270; J2405; Q9967

== ENCOUNTER 2019-12-21 18:25 | Emergency (ER) | payer MEDICARE ==
[2019-12-21] MEDS ORDERED: Morphine 4 MG/ML VIAL ONE ×2 (18:41→20:26)
[2019-12-21] MEDS ORDERED: Ondansetron PF 4 MG/2 ML Vial ONE (18:41)
[2019-12-21 18:56] LABS: #Basophils 0.1 thou/uL (0.0-0.2); #Eosinphils 0.3 thou/uL (0.0-0.7); #Lymphocytes 1.2 thou/uL (1.20-3.40); #Monocytes 0.6 thou/uL (0.11-0.59); #Neutrophils 3.5 thou/uL (1.40-6.50); %Eosinophils 6.1 % (0.0-10.0); %Lymphocytes 21.2 % (21.0-51.0); %Monocytes 10.2 % (0.0-10.0); %Neutrophils 61.6 % (42.0-75.0); Hemoglobin 10.2 g/dL (14.0-18.0); Mean Corpuscular HGB CONC 31.6 g/dL (32.0-36.0); Mean Corpuscular Hemoglobin 30.3 pg (27.0-31.0); Mean Corpuscular Volume 96.1 fL (78.0-98.0); Mean Platelet Volume 10.7 fL (7.4-10.4); Platelet Count 135 thou/uL (130-400); RBC Distribution Width 18.1 % (11.5-14.5); Red Blood Cell (RBC) Count 3.35 mill/uL (4.70-6.10); White Blood Cell (WBC) Count 5.6 thou/uL (4.8-10.8)
[2019-12-21 19:16] LABS: ALT (SGPT) 30 U/L (8-55); AST (SGOT) 21 U/L (5-34); Albumin 3.8 g/dL (3.4-4.8); Alkaline Phosphatase 86 U/L (40-110); Anion Gap 16 mmol/L (10-20); BUN (Urea Nitrogen) 24 mg/dL (8.4-25.7); Bilirubin, Total 1.2 mg/dL (0.2-1.2); Calc. Creatinine Clearance 0 mL/min (70-130); Calcium 9.1 mg/dL (7.8-10.44); Carbon Dioxide 31 mmol/L (23-31); Chloride 97 mmol/L (98-107); Estimated GFR-MDRD 6; Globulin 2.8 g/dL (2.4-3.5); Glucose 95 mg/dL (83-110); Lipase 23 U/L (8-78); Potassium 3.3 mmol/L (3.5-5.1); Protein, Total 6.6 g/dL (5.8-8.1); Sodium 141 mmol/L (136-145)
--- NOTE | 2019-12-21 20:14 | ULT ---
ULTRASOUND ABDOMEN LIMITED: (RIGHT UPPER QUADRANT) DATE: 12/21/2019 HISTORY: 74-year-old male with right upper quadrant abdominal pain FINDINGS: Gallbladder:Distended and filled with sludge. Nonshadowing dependent layer of moderately hypoechoic m aterial in the dependent portion of the proximal gallbladder body near neck. This is probably echogenic sludge. This is less likely to represent gallstones. Normal wall thickness of 2 mm. No chloé cholecystic fluid. Common duct: 5 mm. Liver:Echogenicity within normal limits. Pancreas:Mostly obscured by shadowing from overlying bowel gas. Right kidney:Large number of small cysts throughout the parenchyma. No hydronephrosis. Increased pare nchymal echogenicity suggestive of medical renal disease. IMPRESSION: 1) distended gallbladder full of sludge, plus what appears to be a dependent layer of echogenic sludg e. 2) evidence for chronic medical renal disease of the right kidney, plus large number of small right r enal cysts.
== END 2019-12-21 20:36 | disposition home or self-care (01) ==
LOC: ERS 18:25
DX: R10.11 Right upper quadrant pain (principal); I13.11 Hypertensive heart and chronic kidney disease without heart failure, with stage 5 chronic kidney disease, or end stage renal disease; N18.6 End stage renal disease; E11.22 Type 2 diabetes mellitus with diabetic chronic kidney disease; F17.210 Nicotine dependence, cigarettes, uncomplicated; Z79.82 Long term (current) use of aspirin; Z79.899 Other long term (current) drug therapy
CPT/HCPCS: 36415; 76705; 80053; 83690; 85025; 94760; 96374; 96375; 96376; J2270; J2405

== ENCOUNTER 2019-12-24 01:35 | Inpatient (IN) | payer MEDICARE, OTHER ==
[2019-12-24 02:05] LABS: #Basophils 0.1 thou/uL (0.0-0.2); #Eosinphils 0.1 thou/uL (0.0-0.7); #Lymphocytes 1.2 thou/uL (1.20-3.40); #Monocytes 0.8 thou/uL (0.11-0.59); #Neutrophils 8.4 thou/uL (1.40-6.50); %Basophils 0.7 % (0.0-1.0); %Eosinophils 0.9 % (0.0-10.0); %Lymphocytes 11.2 % (21.0-51.0); %Monocytes 7.9 % (0.0-10.0); %Neutrophils 79.4 % (42.0-75.0); Mean Corpuscular HGB CONC 30.3 g/dL (32.0-36.0); Mean Corpuscular Volume 98.9 fL (78.0-98.0); Mean Platelet Volume 9.7 fL (7.4-10.4); Platelet Count 157 thou/uL (130-400); Red Blood Cell (RBC) Count 3.68 mill/uL (4.70-6.10); White Blood Cell (WBC) Count 10.5 thou/uL (4.8-10.8)
[2019-12-24 02:27] LABS: ALT (SGPT) 18 U/L (8-55); AST (SGOT) 14 U/L (5-34); Albumin 3.9 g/dL (3.4-4.8); Alkaline Phosphatase 82 U/L (40-110); Anion Gap 19 mmol/L (10-20); BUN (Urea Nitrogen) 24 mg/dL (8.4-25.7); Bilirubin, Total 1.6 mg/dL (0.2-1.2); Calc. Creatinine Clearance 0 mL/min (70-130); Calcium 8.6 mg/dL (7.8-10.44); Carbon Dioxide 30 mmol/L (23-31); Chloride 97 mmol/L (98-107); Estimated GFR-MDRD 6; Globulin 3.2 g/dL (2.4-3.5); Glucose 105 mg/dL (83-110); Potassium 3.8 mmol/L (3.5-5.1); Protein, Total 7.1 g/dL (5.8-8.1); Sodium 142 mmol/L (136-145)
[2019-12-24 03:10] LABS: CKMB 1.5 ng/mL (0-6.6)
[2019-12-24] MEDS ORDERED: Vancomycin 1 GM/200 ML BAG ONE (03:20)
[2019-12-24 03:37] LABS: Squamous Epithelial 0-3 HPF (0-3); WBC/HPF 21-50 HPF (0-3)
[2019-12-24 03:38] LABS: Bilirubin 1+ (Negative); Blood, Urine Trace (Negative); Clarity Turbid (Clear); Glucose, Urine (Dipstick) Normal (Negative); Leukocyte 75 Leu/uL (Negative); Nitrite Negative (Negative); Protein, Urine (Dipstick) 300 mg/dL (Neg-Trace); Urobilinogen Normal mg/dL (Less than 2)
[2019-12-24 03:39] LABS: Bacteria/HPF 1+ HPF (None Seen)
[2019-12-24] MEDS ORDERED: Haloperidol Lactate 5 MG/ML VIAL ONE (04:14)
[2019-12-24] MEDS ORDERED: Acetaminophen 650 MG Suppository PR PRN (05:59)
[2019-12-24] MEDS ORDERED: Acetaminophen 325 MG TAB PO PRN (05:59)
--- NOTE | 2019-12-24 06:09 | PDOC.HHP ---
Hospitalist HPI - History of Present Illness altered mental status History of Present Illness: history is limited, most of it taken from ems and ed notes. patient with altered mental status, oriented only to self, no family members present at the moment of evaluation, ED doc was able to communicate with Case of an 74y/o male with pmhx of esrd on h/d chf and hypertension who comes to hospital brought by ems due to altered mental status. refers patient was on his usual state of health until a few days ago when he started to have episodes of disorientation which have gotten worse. at the ED patient was found to be hypoxic with altered mental state for which hospitalist was consulted for further evaluation and management Hospitalist ROS - Review of Systems ROS unobtainable: due to mental status Hospitalist History - Past Medical History Source: RN notes reviewed, old records Cardiac: reports: CHF, HTN Renal/: reports: Chronic renal insuff Endocrine: reports: Diabetes - Past Surgical History Other Surgical History: av fistula - Family History Other Family History: unable to asses due to mental status - Social History Tobacco Type: cigarettes Alcohol: reports: Occassional Drugs: reports: Other Living Situation: Alone, With Family - Exam General Appearance: NAD Eye: PERRL, anicteric sclera ENT: normocephalic atraumatic, no oropharyngeal lesions Neck: supple, symmetric Heart: RRR, no murmur, no gallops Respiratory: CTAB, no wheezes, no rales Gastrointestinal: soft, non-tender, non-distended Extremities: no cyanosis, 1+ LE edema Neurological: cranial nerve grossly intact, normal sensation to touch Musculoskeletal: normal tone Psychiatric: normal affect, normal behavior, oriented to person Hospitalist Results - Labs Result Diagrams: 12/24/19 01:52 12/24/19 01:52 Lab results: WBC 10.5 thou/uL (4.8-10.8) 12/24/19 01:52 Hgb 11.0 g/dL (14.0-18.0) L 12/24/19 01:52 Hct 36.4 % (42.0-52.0) L 12/24/19 01:52 MCV 98.9 fL (78.0-98.0) H 12/24/19 01:52 Plt Count 157 thou/uL (130-400) 12/24/19 01:52 Neutrophils % 79.4 % (42.0-75.0) H 12/24/19 01:52 Sodium 142 mmol/L (136-145) 12/24/19 01:52 Potassium 3.8 mmol/L (3.5-5.1) 12/24/19 01:52 Chloride 97 mmol/L (98-107) L 12/24/19 01:52 Carbon Dioxide 30 mmol/L (23-31) 12/24/19 01:52 BUN 24 mg/dL (8.4-25.7) 12/24/19 01:52 Creatinine 10.90 mg/dL (0.7-1.3) H 12/24/19 01:52 Glucose 105 mg/dL (83-110) 12/24/19 01:52 Lactic Acid 1.6 mmol/L (0.5-2.2) 12/24/19 01:52 Calcium 8.6 mg/dL (7.8-10.44) 12/24/19 01:52 Total Bilirubin 1.6 mg/dL (0.2-1.2) H 12/24/19 01:52 AST 14 U/L (5-34) 12/24/19 01:52 ALT 18 U/L (8-55) 12/24/19 01:52 Alkaline Phosphatase 82 U/L (40-110) 12/24/19 01:52 CK-MB (CK-2) 1.5 ng/mL (0-6.6) 12/24/19 01:52 Troponin I 0.399 ng/mL (< 0.028) H* 12/24/19 01:52 Serum Total Protein 7.1 g/dL (5.8-8.1) 12/24/19 01:52 Albumin 3.9 g/dL (3.4-4.8) 12/24/19 01:52 Urine Ketones Negative mg/dL (Negative) 12/24/19 03:15 Urine Blood Trace (Negative) A 12/24/19 03:15 Urine Nitrite Negative (Negative) 12/24/19 03:15 Ur Leukocyte Esterase 75 Criss/uL (Negative) A 12/24/19 03:15 Urine WBC 21-50 HPF (0-3) A 12/24/19 03:15 Ur Squamous Epith Cells 0-3 HPF (0-3) 12/24/19 03:15 Urine Bacteria 1+ HPF (None Seen) A 12/24/19 03:15 Hospitalist H&P A/P - Problem (1) Altered mental state Code(s): R41.82 - ALTERED MENTAL STATUS, UNSPECIFIED Status: Acute (2) COVID-19 ruled out Code(s): Z03.818 - ENCNTR FOR OBS FOR SUSP EXPSR TO OTH BIOLG AGENTS RULED OUT Status: Acute (3) UTI (urinary tract infection) Status: Acute (4) Hypoxia Code(s): R09.02 - HYPOXEMIA Status: Acute (5) Elevated troponin Code(s): R79.89 - OTHER SPECIFIED ABNORMAL FINDINGS OF BLOOD CHEMISTRY Status : Acute (6) ESRD on dialysis Code(s): N18.6 - END STAGE RENAL DISEASE; Z99.2 - DEPENDENCE ON RENAL DIALYSIS Status: Acute - Plan Plan: altered mental state - likely secondary to infection, will r/o metabolic causes with cmp, tsh b12 and ammonia levels uti - pt with u/a consistent with uti, covered with rocephin f/u cultures hypoxia / covid r/a - 02 suppplementation is been provided, arrived at 70% improves initially with 4 now on 2l with 92-94%. covid test sent from ed. precautions started. hypoxia of unknow origen r/o covid, cta sent pending results. cxr does seem like copd / chronic lung disease. refers compliance with medication and h/d treatments esrd - fiber design engineer consulted, continue w h/d elevated troponin - patient w elevated troponin, likely in the setting of esrd, will order series to evaluated trend
[2019-12-24 07:10] LABS: Thyroid Stimulating Hormone 1.1082 uIU/mL (0.35-4.94)
--- NOTE | 2019-12-24 07:37 | CT ---
PRELIMINARY REPORT/[facility]/EMERGENCY AFTER HOURS PROCEDURE EXAM: CT Head Without Intravenous Contrast. CLINICAL HISTORY: Fall, altered mental status TECHNIQUE: Axial computed tomography images of the head/brain without intravenous contrast. COMPARISON: None provided. FINDINGS: BRAIN: No acute intraparenchymal hemorrhage. No mass lesion. No CT evidence for acute territorial infarct. N o midline shift or extra-axial collection. Diffuse cerebral atrophy. There are subcortical and deep white matter hypodensities which are nonspecific but which statistical ly most likely reflect changes of chronic small vessel ischemic disease. ORBITS: The orbits are unremarkable. SINUSES AND MASTOIDS: The paranasal sinuses and mastoid air cells are unremarkable. SOFT TISSUES: No significant facial or scalp soft tissue swelling evident. No radiopaque foreign body is seen. BONES: No acute skull fracture. IMPRESSION: 1. No evidence of acute intracranial abnormality. 2. Diffuse cerebral atrophy. 3. There are subcortical and deep white matter hypodensities which are nonspecific but which statisti jj most likely reflect changes of chronic small vessel ischemic disease. ELECTRONICALLY SIGNED BY: Huber Lee MD December 24, 2019 2:56:13 AM CDT This report is intended for review by the ordering physician only, in accordance of law. If you recei ve this report in error, please call [facility] at [phone]. FINAL REPORT Exam: Head CT without contrast HISTORY: Fall. Altered mental status. COMPARISON: none FINDINGS: Hemorrhage: No intraparenchymal hemorrhage or extra-axial hematoma. Brain parenchyma: Cortical camacho-white matter differentiation is preserved. No mass effect or midline shift. Basilar cisterns are patent.Chronic small vessel ischemic changes of the white matter. Ventricular system: Ventricles and sulci are patent and symmetric. Calvarium: Intact. Sinuses and mastoid air cells: Adequate aeration. IMPRESSION: 1. Report is in agreement with initial report by [facility]. 2. No intracranial posttraumatic sequelae. 3. Chronic small vessel ischemic changes of the white matter. Transcribed Date/Time: 12/24/2019 7:56 AM
--- NOTE | 2019-12-24 07:41 | CT ---
PRELIMINARY REPORT/[facility]/EMERGENCY AFTER HOURS PROCEDURE EXAM: CTA Chest, With Contrast. DATE/ TIME: 12/24/2019, 4:31 AM INDICATION: Altered mental status. S/P fall TECHNIQUE: During the rapid intravenous administration of 100 mL Isovue-370, helical CT of the chest was performed utilizing angiographic protocol. MPRs and multiplanar MIPs were generated and reviewed. Exam was performed using one or more of the following dose reduction techniques: automate d exposure control, adjustment of the mA and/or kV according to patient size, or use of iterative reconstruction technique. COMPARISON: None. FINDINGS: Pulmonary arterial system is well-opacified and there is no intraluminal filling defect. The heart is moderately enlarged with dense calcified atheroma seen in the coronary arteries. Main pulmonary artery measures 3.4 cm in diameter suggesting a component of pulmonary arterial hypertensio n. The aorta contains moderate atherosclerotic calcified plaque without aneurysm or dissection. 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 A metallic stent in the left axillary vein is partially seen. Mild bronchial wall thickening is seen with greatest degree in the mid and lower lung zones. Mild mi xed interstitial and alveolar infiltrate is noted posteriorly in the left upper lobe with a degree also seen in the right lower lobe. Trace bilateral pleural effusions are noted. Limited imaging of the upper abdomen shows no acute pathology. Spondylosis within the thoracic spine is noted. No acute osseous abnormality is seen. IMPRESSION: 1. No pulmonary thromboembolism. 2. Cardiomegaly with coronary and aortic atherosclerosis. 3. Peripheral infiltrates in the left upper and right lower lobes. 4. Bilateral trace pleural effusions. ELECTRONICALLY SIGNED BY: George Camarena DO December 24, 2019 5:14:24 AM CDT This report is intended for review by the ordering physician only, in accordance of law. If you recei ve this report in error, please call [facility] at [phone]. FINAL REPORT Exam: CT angiogram of the chest HISTORY: Status post fall. Altered mental status. COMPARISON: None TECHNIQUE: CT angiogram of the chest is performed in the axial plane. Three-dimensional reformatted i mages are submitted for interpretation FINDINGS: Mediastinum: No mass, lymphadenopathy or hematoma. HEART: Cardiomegaly. Left ventricular hypertrophy.. Small amount of pericardial pericardial fluid. Aorta: No aneurysm or dissection Upper solid abdominal viscera: Multiple hypodensities in the upper pole right kidney, incompletely ev aluated. Indeterminate hypodensity in the spleen. Trachea and central bronchi: Patent Pleural spaces: Small bilateral pleural effusions. Adjacent lung parenchymal changes due to scar or a telectasis Lung parenchyma: No masses or consolidation. Pneumothorax: None Osseous structures: No lytic or blastic lesions Pulmonary arteries: Adequate contrast opacification pulmonary arterial system to the level of segment al arteries. No filling defect to suggest pulmonary embolism IMPRESSION: 1. This report is in agreement with initial report by [facility] 2. No evidence of pulmonary artery embolism to the level of the segmental arteries. 3. Cardiomegaly. Left ventricular hypertrophy. Transcribed Date/Time: 12/24/2019 7:59 AM
--- NOTE | 2019-12-24 07:45 | RAD ---
Exam: Chest one view HISTORY:Altered mental status. Comparison: 08/23/2019 FINDINGS: Cardiac silhouette:Cardiomegaly Aorta: Atherosclerosis Pulmonary vessels: Normal Costophrenic angles: Clear LUNGS: Chronic lung parenchymal changes. Pneumothorax: None Osseous abnormalities: None IMPRESSION: No acute cardiopulmonary process.
[2019-12-24] MEDS ORDERED: Iopamidol 370 76% 100 ML VIAL ONE (10:03)
[2019-12-24] MEDS: Enoxaparin Sodium 30 MG/0.3 ML SYRINGE SC SCH (10:27)
[2019-12-24] MEDS ORDERED: Carvedilol 25 MG TAB PO SCH (11:30)
[2019-12-24] MEDS: cefTRIAXone\\ROCEPHIN 1 GM in Sodium Chloride 0.9% 100 ML IVPB SCH (12:25)
[2019-12-24] MEDS ORDERED: Aztreonam 2 GM in Sodium Chloride 0.9% 100 ML IVPB SCH (14:00)
[2019-12-24] MEDS ORDERED: Vancomycin 1 GM in Premix Bag 1 BAG IVPB SCH (15:00)
[2019-12-24 17:05] LABS: Critical Call Chem Troponin I RESULT DECREASING; Troponin I 0.415 ng/mL (< 0.028)
[2019-12-24 17:12] LABS: SARS-CoV-2 MS2 Positive; SARS-CoV-2 N Gene Negative; SARS-CoV-2 S Gene Negative; SARS-CoV-2 orf1ab Negative
[2019-12-24 17:16] LABS: HBSAg Index 0.18 S/CO (0-0.99); Hep B Surf Ag Non-Reactive S/CO (NonReactive)
[2019-12-24] MEDS: Calcium Acetate 667 MG CAP PO SCH (18:18)
--- NOTE | 2019-12-24 18:22 | PDOC.EVN ---
Event Note - Event Note Event Note: Inherited patient this morning. Feeling well, remains confused, baseline unknown. #confusion -infectious vs hypertensive vs hypoxemic encephalopathy -will establish basline while treating possible underlying conditions #hypertensive emergency #NSTEMI -likely demand due to medication nonadherence; will continue to follow #UTI endorses no relevant symptoms but considering mental state, will start treatment with rocephin
--- NOTE | 2019-12-24 20:18 | CON ---
DATE OF CONSULTATION: REASON FOR CONSULTATION: End-stage renal disease, for maintenance hemodialysis. HISTORY OF PRESENTING ILLNESS: This is a very pleasant 74-year-old gentleman who presented to the hospital earlier this morning for altered mental status. The patient dialyzes Thursday, , Thursday. The patient can give no further history. Patient is having delusions. PAST MEDICAL HISTORY: Significant for hypertension, anemia, end-stage renal disease, history of AV fistula, history of tunneled dialysis catheter. REVIEW OF SYSTEMS: Unobtainable. FAMILY HISTORY: Negative for ESRD. ALLERGIES: REVIEWED. MEDICATIONS: Home medications reviewed. Hospital medications reviewed. PHYSICAL EXAMINATION: GENERAL: Patient is resting. VITAL SIGNS: Afebrile, pulse 75, breathing 16, blood pressure 166/74. HEENT: Head normocephalic and atraumatic. Eyes intact, no ulcers. Nose intact, no ulcers. Ears intact, no ulcers. Neck: Supple. No JVD. Chest: Symmetrical and clear. Cardiovascular: Shows S1 and S2, no rub, no murmur. Gastrointestinal: Abdomen is soft, bowel sounds positive. Extremities: Show no edema or ulcers. Skin: Shows no rash or petechiae. Musculoskeletal: Shows no joint swelling or stiffness. Genitourinary: Shows no Gonzalez or CVA tenderness. Neurologic: Motor intact. Cranial nerves intact. LABORATORY DATA: Hemoglobin 11, creatinine 3.8. IMPRESSION: 1. Stage 6 chronic kidney disease. Plan dialysis. 2. Hypertension, remove fluid. 3. Anemia, stable. Medication based on GFR appropriate. We will plan dialysis today. Rule out COVID. Job ID: [id number]
[2019-12-24] MEDS: Carvedilol 25 MG TAB PO SCH (20:19)
[2019-12-24] MEDS: hydrALAZINE 25 MG TAB PO SCH (20:19)
[2019-12-24] MEDS: Senokot S 8.6-50 MG TAB PO SCH (20:20)
[2019-12-25 05:17] LABS: ALT (SGPT) 12 U/L (8-55); AST (SGOT) 13 U/L (5-34); Albumin 3.3 g/dL (3.4-4.8); Alkaline Phosphatase 73 U/L (40-110); Anion Gap 21 mmol/L (10-20); BUN (Urea Nitrogen) 41 mg/dL (8.4-25.7); Bilirubin, Total 0.9 mg/dL (0.2-1.2); Calc. Creatinine Clearance 6 mL/min (70-130); Calcium 7.9 mg/dL (7.8-10.44); Carbon Dioxide 23 mmol/L (23-31); Chloride 97 mmol/L (98-107); Estimated GFR-MDRD 5; Globulin 2.9 g/dL (2.4-3.5); Glucose 81 mg/dL (83-110); Potassium 3.9 mmol/L (3.5-5.1); Protein, Total 6.2 g/dL (5.8-8.1); Sodium 137 mmol/L (136-145)
[2019-12-25 06:06] LABS: Hemoglobin 10.5 g/dL (14.0-18.0); Mean Corpuscular HGB CONC 30.9 g/dL (32.0-36.0); Mean Corpuscular Hemoglobin 29.6 pg (27.0-31.0); Platelet Count 135 thou/uL (130-400); RBC Distribution Width 18.2 % (11.5-14.5); Red Blood Cell (RBC) Count 3.56 mill/uL (4.70-6.10); White Blood Cell (WBC) Count 11.3 thou/uL (4.8-10.8)
[2019-12-25 06:33] LABS: Band 1 % (5-11); Eosinophils 4 % (0-10); Lymphocytes 13 % (21-51); MDiff Complete? YES; Monocytes 8 % (0-10); Neutrophil 74 % (42-75)
[2019-12-25] MEDS: Calcium Acetate 667 MG CAP PO SCH ×3 (09:08→17:48)
[2019-12-25] MEDS: Enoxaparin Sodium 30 MG/0.3 ML SYRINGE SC SCH (14:02)
[2019-12-25] MEDS: Amlodipine 10 MG TAB PO SCH (14:03)
[2019-12-25] MEDS: hydrALAZINE 25 MG TAB PO SCH ×2 (14:03→21:48)
[2019-12-25] MEDS: Carvedilol 25 MG TAB PO SCH ×2 (14:03→21:48)
[2019-12-25] MEDS: Aspirin 325 MG TAB PO SCH (14:05)
[2019-12-25] MEDS: Senokot S 8.6-50 MG TAB PO SCH ×2 (14:06→21:48)
[2019-12-25] MEDS: cefTRIAXone\\ROCEPHIN 1 GM in Sodium Chloride 0.9% 100 ML IVPB SCH (14:06)
[2019-12-25] MEDS: Famotidine 20 MG TAB PO SCH (14:06)
--- NOTE | 2019-12-25 16:58 | PRG ---
DATE OF SERVICE: 12/25/2019 SUBJECTIVE: A 74-year-old gentleman being seen for end-stage renal disease. The patient denies any nausea, vomiting or chest pain. OBJECTIVE: GENERAL: The patient is awake and alert. VITAL SIGNS: Afebrile, pulse 75, breathing 16, blood pressure 169/85. HEENT: Head normocephalic and atraumatic. Eyes intact, no ulcers. Nose intact, no ulcers. Ears intact, no ulcers. Neck: Supple. No JVD. Chest: Symmetrical and clear. Cardiovascular: Shows S1 and S2, no rub, no murmur. Gastrointestinal: Abdomen is soft, bowel sounds positive. Extremities: Show no edema or ulcers. Skin: Shows no rash or petechiae. Musculoskeletal: Shows no joint swelling or stiffness. Genitourinary: Shows no Gonzalez or CVA tenderness. Neurologic: Motor intact. Cranial nerves intact. LABORATORY DATA: Reviewed. ASSESSMENT: 1. Stage 6 chronic kidney disease. Plan dialysis. 2. Hypertension, titrate home medication. 3. Anemia, stable. Medication based on GFR, change Lovenox to regular heparin b.i.d. Job ID: [id number]
--- NOTE | 2019-12-25 22:38 | PDOC.HOSPP ---
- Subjective Encounter Date: 12/25/19 Encounter Time: 10:00 Subjective: no overnight events. This morning, more oriented but per who spoke with nurse, A&Ox4 at baseline. pending hemodialysis - Objective Vital Signs & Weight: Vital Signs (12 hours) Temp Pulse Resp BP BP BP Pulse Ox 12/25/19 21:48 78 132/63 12/25/19 19:25 98.5 F 78 15 132/63 98 12/25/19 16:45 98.1 F 78 16 130/62 96 12/25/19 14:03 76 216/90 H 99 12/25/19 11:04 98.2 F 76 18 169/85 H 94 L Weight Weight 194 lb 4.8 oz I&O: 12/24/19 12/25/19 12/26/19 06:59 06:59 06:59 Intake Total 440 880 Output Total 3000 Balance 440 2120 Result Diagrams: 12/25/19 04:50 12/25/19 04:50 Hospitalist ROS - Review of Systems Constitutional: denies: fever, chills, sweats, weakness, malaise, other Respiratory: denies: cough, dry, shortness of breath, hemoptysis, SOB with excertion, pleuritic pain, sputum, wheezing, other Cardiovascular: denies: chest pain, palpitations, orthopnea, paroxysmal noc. dyspnea, edema, light headedness, other Gastrointestinal: denies: nausea, vomiting, abdominal pain, diarrhea, constipation, melena, hematochezia, other Genitourinary: denies: dysuria, frequency, incontinence, hematuria, retention, other - Medication Medications: Active Medications Generic Name Dose Route Start Last Admin Trade Name Freq PRN Reason Stop Dose Admin Amlodipine Besylate 10 mg 12/25/19 09:00 12/25/19 14:03 Norvasc PO 10 mg DAILY SUN Administration Aspirin 325 mg 12/25/19 09:00 12/25/19 14:05 Aspirin PO 325 mg DAILY SUN Administration Calcium Acetate 1,334 mg 12/24/19 17:00 12/25/19 17:48 Phoslo PO 1,334 mg TID-WM SUN Administration Carvedilol 25 mg 12/24/19 21:00 12/25/19 21:48 Coreg PO 25 mg BID SUN Administration Enoxaparin Sodium 30 mg 12/24/19 09:00 12/25/19 14:02 Lovenox SC Not Given 0900 SUN Famotidine 20 mg 12/25/19 09:00 12/25/19 14:06 Pepcid PO Not Given DAILY SUN Hydralazine HCl 50 mg 12/24/19 21:00 12/25/19 21:48 Apresoline PO 50 mg BID SUN Administration Ceftriaxone Sodium 1 gm/ 100 mls @ 200 mls/hr 12/24/19 12:00 12/25/19 14:06 Sodium Chloride IVPB 100 mls 1200 SUN Administration Senna/Docusate Sodium 1 tab 12/24/19 21:00 12/25/19 21:48 Senokot S PO 1 tab BID SUN Administration Sodium Chloride 10 ml 12/24/19 09:00 12/25/19 14:06 Flush - Normal Saline IVF 10 ml Q12HR SUN Administration - Exam General Appearance: NAD, awake alert Neck: no JVD Heart: RRR, no murmur, no gallops, no rubs, normal peripheral pulses Respiratory: CTAB, no wheezes, no rales, no ronchi, normal chest expansion, no tachypnea, normal percussion Gastrointestinal: soft, non-tender, non-distended, normal bowel sounds, no palpable masses, no hepatomegaly, no splenomegaly, no bruit Extremities: 1+ LE edema Psychiatric: oriented to person. negative: oriented to place, oriented to time Hosp A/P - Plan #Encephalopathy -improving -hypoxemia resolved -continue treating for UTI and hypertension (pending HD) -per , A&Ox4 at baseline ELOS 1-2 midnights
[2019-12-26] MEDS: Famotidine 20 MG TAB PO SCH (03:38)
[2019-12-26] MEDS ORDERED: Mag-Al 1200 mg/1200 mg/30 ML UDCUP PO PRN (05:39)
[2019-12-26 05:42] LABS: #Eosinphils 0.2 thou/uL (0.0-0.7); #Monocytes 0.8 thou/uL (0.11-0.59); #Neutrophils 6.9 thou/uL (1.40-6.50); %Basophils 0.5 % (0.0-1.0); %Eosinophils 2.8 % (0.0-10.0); %Lymphocytes 11.2 % (21.0-51.0); %Monocytes 8.6 % (0.0-10.0); Hemoglobin 10.9 g/dL (14.0-18.0); Mean Corpuscular HGB CONC 30.7 g/dL (32.0-36.0); Mean Corpuscular Hemoglobin 29.4 pg (27.0-31.0); Mean Corpuscular Volume 95.5 fL (78.0-98.0); Mean Platelet Volume 10.2 fL (7.4-10.4); Platelet Count 158 thou/uL (130-400); RBC Distribution Width 18.1 % (11.5-14.5); Red Blood Cell (RBC) Count 3.71 mill/uL (4.70-6.10); White Blood Cell (WBC) Count 8.9 thou/uL (4.8-10.8)
[2019-12-26] MEDS ORDERED: Potassium Chloride 20 MEQ TAB PO SCH (05:45)
[2019-12-26] MEDS: Aspirin 325 MG TAB PO SCH ×2 (06:03→10:09)
[2019-12-26 06:04] LABS: Anion Gap 17 mmol/L (10-20); BUN (Urea Nitrogen) 33 mg/dL (8.4-25.7); Calc. Creatinine Clearance 9 mL/min (70-130); Calcium 8.8 mg/dL (7.8-10.44); Carbon Dioxide 26 mmol/L (23-31); Chloride 95 mmol/L (98-107); Estimated GFR-MDRD 7; Glucose 105 mg/dL (83-110); Magnesium 1.8 mg/dL (1.6-2.6); Potassium 3.4 mmol/L (3.5-5.1); Sodium 135 mmol/L (136-145)
[2019-12-26] MEDS ORDERED: Ondansetron ORAL SOLN. 4 MG/5 ML UDCUP PO PRN (07:54)
[2019-12-26] MEDS: Calcium Acetate 667 MG CAP PO SCH ×3 (08:52→19:10)
[2019-12-26] MEDS: Senokot S 8.6-50 MG TAB PO SCH ×2 (10:09→20:12)
[2019-12-26] MEDS: Carvedilol 25 MG TAB PO SCH ×2 (10:09→20:12)
[2019-12-26] MEDS: Amlodipine 10 MG TAB PO SCH (10:10)
[2019-12-26] MEDS: Enoxaparin Sodium 30 MG/0.3 ML SYRINGE SC SCH (10:10)
[2019-12-26] MEDS: hydrALAZINE 25 MG TAB PO SCH ×2 (10:10→20:12)
--- NOTE | 2019-12-26 12:15 | PRG ---
DATE OF SERVICE: 12/26/2019 SUBJECTIVE: Patient was seen and examined at bedside and overnight events noted. Patient denies any shortness of breath or chest pain or palpitation. No history of nausea or vomiting or diarrhea or fever or chills or cramps. OBJECTIVE: GENERAL: This is a well-built male, in no apparent distress. VITAL SIGNS: Temperature . Heart rate 70. Respiratory rate 18. Blood pressure 117/73. HEENT: Atraumatic, normocephalic. Oral mucosa is moist NECK: Supple. CARDIOVASCULAR: S1, S2 heard. Rate and rhythm regular. RESPIRATORY: Clear to auscultation. GASTROINTESTINAL: Abdomen is soft. MUSCULOSKELETAL: No tenderness. No edema. DERMATOLOGIC: No skin rash. NEUROLOGIC: Alert and awake and oriented X3. No focal neurologic deficits. Moving all the extremities. PSYCHIATRIC: Mood and affect normal. LABORATORY DATA: Potassium is 3.4, BUN is 33, creatinine is 9.4. ASSESSMENT AND PLAN: 1. End-stage renal disease. Continue dialysis. 2. History of hypertension. 3. Anemia. Continue dialysis as tolerated. Job ID: [id number]
--- NOTE | 2019-12-26 14:50 | PDOC.HOSPP ---
- Subjective Encounter Date: 12/26/19 Encounter Time: 09:00 Subjective: no overnight events. Endorses feeling well and has no complaints. Alert and oriented x 2 (self, date but not to location), which is improved compared to yesterday. Per over the phone, patient not at baseline. - Objective Vital Signs & Weight: Vital Signs (12 hours) Temp Pulse Resp BP Pulse Ox 12/26/19 12:50 97.8 F 76 14 128/62 95 12/26/19 07:56 97.4 F L 78 18 170/73 H 98 12/26/19 02:52 98.2 F 84 18 137/82 99 Weight Weight 194 lb 4.8 oz I&O: 12/25/19 12/26/19 12/27/19 06:59 06:59 06:59 Intake Total 440 1680 Output Total 3000 Balance 440 -1320 Result Diagrams: 12/26/19 05:18 12/26/19 05:18 Hospitalist ROS - Review of Systems Constitutional: denies: fever, chills, sweats, weakness, malaise, other Eyes: denies: vision change Respiratory: denies: cough, dry, shortness of breath, hemoptysis, SOB with excertion, pleuritic pain, sputum, wheezing Cardiovascular: denies: chest pain, palpitations, orthopnea, paroxysmal noc. dyspnea, edema, light headedness, other Gastrointestinal: denies: nausea, vomiting, abdominal pain, diarrhea, constipation, melena, hematochezia, other Genitourinary: denies: dysuria, frequency, incontinence, hematuria, retention, other - Medication Medications: Active Medications Generic Name Dose Route Start Last Admin Trade Name Freq PRN Reason Stop Dose Admin Acetaminophen 650 mg 12/24/19 05:59 12/26/19 03:37 Tylenol PO 650 mg Q4H PRN Administration Headache/Fever/Mild Pain (1-3) Al Hydroxide/Mg Hydroxide 30 ml 12/26/19 05:39 12/26/19 06:03 Maalox PO 30 ml BID PRN Administration Heartburn or Indigestion Amlodipine Besylate 10 mg 12/25/19 09:00 12/26/19 10:10 Norvasc PO 10 mg DAILY SUN Administration Aspirin 325 mg 12/25/19 09:00 12/26/19 10:09 Aspirin PO 325 mg DAILY SUN Administration Calcium Acetate 1,334 mg 12/24/19 17:00 12/26/19 11:50 Phoslo PO 1,334 mg TID-WM SUN Administration Carvedilol 25 mg 12/24/19 21:00 12/26/19 10:09 Coreg PO 25 mg BID SUN Administration Enoxaparin Sodium 30 mg 12/24/19 09:00 12/26/19 10:10 Lovenox SC 30 mg 09 SUN Administration Famotidine 20 mg 12/25/19 09:00 12/26/19 03:38 Pepcid PO 20 mg DAILY SUN Administration Hydralazine HCl 50 mg 12/24/19 21:00 12/26/19 10:10 Apresoline PO 50 mg BID SUN Administration Ondansetron HCl 4 mg 12/26/19 07:54 12/26/19 08:53 Zofran PO 4 mg Q6H PRN Administration Nausea/Vomiting Senna/Docusate Sodium 1 tab 12/24/19 21:00 12/26/19 10:09 Senokot S PO Not Given BID [facility] Sodium Chloride 10 ml 12/24/19 09:00 12/26/19 10:11 Flush - Normal Saline IVF Not Given Q12HR SUN - Exam General Appearance: NAD, awake alert Heart: RRR, no murmur, no gallops, no rubs Respiratory: CTAB, no wheezes, no rales, no ronchi Gastrointestinal: soft, non-tender, non-distended, normal bowel sounds Extremities: no edema Psychiatric: oriented to person, oriented to time Psychiatric - other findings: appears confused, claims he's home. Hosp A/P - Plan #Encephalopathy -improving now A&O x 2 (not to place) -infectious, hypoxic, metabolic etiologies ruled out; hypertension resolved -apparently has NIKHIL and hasn't been on CPAP. May be related to hypercapnia #NIKHIL -start CPAP at night ELOS 1-2 midnights
[2019-12-26 15:45] VITALS: BMI 33.3
[2019-12-27] MEDS: hydrALAZINE 25 MG TAB PO SCH ×2 (09:40→20:37)
[2019-12-27] MEDS: Amlodipine 10 MG TAB PO SCH (09:40)
[2019-12-27] MEDS: Aspirin 325 MG TAB PO SCH (09:40)
[2019-12-27] MEDS: Senokot S 8.6-50 MG TAB PO SCH ×2 (09:41→20:38)
[2019-12-27] MEDS: Enoxaparin Sodium 30 MG/0.3 ML SYRINGE SC SCH (09:41)
[2019-12-27] MEDS: Carvedilol 25 MG TAB PO SCH ×2 (09:41→20:37)
[2019-12-27] MEDS: Calcium Acetate 667 MG CAP PO SCH ×3 (09:46→18:40)
--- NOTE | 2019-12-27 14:04 | PRG ---
DATE OF SERVICE: 12/27/2019 SUBJECTIVE: Patient was seen and examined at bedside and overnight events noted. Patient denies any shortness of breath or chest pain or palpitation. No history of nausea or vomiting or diarrhea or fever or chills or cramps. OBJECTIVE: GENERAL: This is a well-built male, in no apparent distress. VITAL SIGNS: Temperature 98.1. Heart Rate 83. Respiratory rate 16. Blood pressure 107/73. HEENT: Atraumatic, normocephalic. Oral mucosa is moist. NECK: Supple. CARDIOVASCULAR: S1, S2 heard. Rate and rhythm regular. RESPIRATORY: Clear to auscultation. GASTROINTESTINAL: Abdomen is soft. MUSCULOSKELETAL: No tenderness. No edema. DERMATOLOGIC: No skin rash. NEUROLOGIC: Alert and awake and oriented x3. No focal neurologic deficits. Moving all the extremities. PSYCHIATRIC: Mood and affect normal. LABORATORY DATA: Potassium 3.4, BUN is 33, creatinine is ASSESSMENT AND PLAN: 1. End-stage renal disease. Continue on dialysis. 2. History of hypertension. 3. Anemia. 4. Edema, controlled. 5. Continue dialysis as tolerated. Altered mentation is better. Job ID: [id number]
[2019-12-27] MEDS ORDERED: Polyethylene Glycol 3350 17 GM Packet PO PRN ×2 (16:56→23:18)
--- NOTE | 2019-12-27 23:05 | PDOC.HOSPP ---
- Subjective Encounter Date: 12/27/19 Encounter Time: 09:00 Subjective: no overnight events. this morning in dialysis feels well and has no complaints. Alert and oriented x 2. - Objective Vital Signs & Weight: Vital Signs (12 hours) Temp Pulse Resp BP BP Pulse Ox 12/27/19 19:18 97.7 F 79 16 160/70 H 95 12/27/19 16:00 98.1 F 75 16 129/60 97 Weight Admit Weight 196 lb Weight 185 lb 14.4 oz I&O: 12/26/19 12/27/19 12/28/19 06:59 06:59 06:59 Intake Total 1680 200 Output Total 3000 Balance -1320 200 Result Diagrams: 12/26/19 05:18 12/26/19 05:18 Hospitalist ROS - Review of Systems Constitutional: denies: fever, chills, sweats, weakness, malaise, other Respiratory: denies: cough, dry, shortness of breath, hemoptysis, SOB with excertion, pleuritic pain, sputum, wheezing, other Cardiovascular: denies: chest pain, palpitations, orthopnea, paroxysmal noc. dyspnea, edema, light headedness, other Gastrointestinal: denies: nausea, vomiting, abdominal pain, diarrhea, constipation, melena, hematochezia, other - Medication Medications: Active Medications Generic Name Dose Route Start Last Admin Trade Name Freq PRN Reason Stop Dose Admin Acetaminophen 650 mg 12/24/19 05:59 12/26/19 03:37 Tylenol PO 650 mg Q4H PRN Administration Headache/Fever/Mild Pain (1-3) Al Hydroxide/Mg Hydroxide 30 ml 12/26/19 05:39 12/26/19 06:03 Maalox PO 30 ml BID PRN Administration Heartburn or Indigestion Amlodipine Besylate 10 mg 12/25/19 09:00 12/27/19 09:40 Norvasc PO 10 mg DAILY SUN Administration Aspirin 325 mg 12/25/19 09:00 12/27/19 09:40 Aspirin PO 325 mg DAILY SUN Administration Calcium Acetate 1,334 mg 12/24/19 17:00 12/27/19 18:40 Phoslo PO Not Given TID-[facility] Carvedilol 25 mg 12/24/19 21:00 12/27/19 20:37 Coreg PO 25 mg BID SUN Administration Enoxaparin Sodium 30 mg 12/24/19 09:00 12/27/19 09:41 Lovenox SC 30 mg 0900 SUN Administration Hydralazine HCl 50 mg 12/24/19 21:00 12/27/19 20:37 Apresoline PO 50 mg BID SUN Administration Ondansetron HCl 4 mg 12/26/19 07:54 12/26/19 08:53 Zofran PO 4 mg Q6H PRN Administration Nausea/Vomiting Pantoprazole Sodium 20 mg 12/27/19 09:00 12/27/19 09:41 Protonix PO 20 mg DAILY SUN Administration Polyethylene Glycol 17 gm 12/27/19 16:56 12/27/19 18:38 Miralax PO 17 gm DAILYPRN PRN Administration Constipation Senna/Docusate Sodium 1 tab 12/24/19 21:00 12/27/19 20:38 Senokot S PO Not Given BID [facility] Sodium Chloride 10 ml 12/24/19 09:00 12/27/19 20:38 Flush - Normal Saline IVF Not Given Q12HR SUN - Exam General Appearance: NAD, awake alert Heart: RRR, no murmur, no gallops, no rubs Respiratory: CTAB, no wheezes, no rales, no ronchi Gastrointestinal: soft, non-tender, non-distended, normal bowel sounds Extremities: no edema Psychiatric: oriented to person, oriented to time. negative: oriented to place Hosp A/P - Plan #Encephalopathy -remains O x 2; stopped cetirizine due to anticholinergic effects which may precipitate confusion -infectious, hypoxic, metabolic etiologies ruled out; keeps having episodes of grossly elevated blood pressure; started losartan in addition to previous regimen -apparently has NIKHIL and hasn't been on CPAP. May result in hypercapnic confusion #NIKHIL -start CPAP at night ELOS 1-2 midnights
[2019-12-27] MEDS ORDERED: hydrALAZINE 25 MG TAB PO SCH ×2 (23:30)
[2019-12-28 05:29] LABS: Potassium 3.9 mmol/L (3.5-5.1)
[2019-12-28] MEDS ORDERED: hydrALAZINE 25 MG TAB PO SCH (09:00)
[2019-12-28] MEDS: Calcium Acetate 667 MG CAP PO SCH ×3 (09:35→17:31)
[2019-12-28] MEDS: Losartan 25 MG TAB PO SCH (09:36)
[2019-12-28] MEDS: hydrALAZINE 25 MG TAB PO SCH ×2 (09:38→21:00)
[2019-12-28] MEDS: Carvedilol 25 MG TAB PO SCH ×2 (09:38→21:01)
[2019-12-28] MEDS: Aspirin 325 MG TAB PO SCH (09:38)
[2019-12-28] MEDS: Amlodipine 10 MG TAB PO SCH (09:43)
[2019-12-28] MEDS: Enoxaparin Sodium 30 MG/0.3 ML SYRINGE SC SCH (09:43)
[2019-12-28] MEDS: Senokot S 8.6-50 MG TAB PO SCH ×2 (09:45→21:01)
--- NOTE | 2019-12-28 10:59 | PRG ---
DATE OF SERVICE: 12/28/2019 SUBJECTIVE: Patient was seen and examined at bedside and overnight events noted. Patient denies any shortness of breath or chest pain or palpitation. No history of nausea or vomiting or diarrhea or fever or chills or cramps. OBJECTIVE: GENERAL: This is a well-built male, in no apparent distress. VITAL SIGNS: Temperature 98.3, pulse 70, respiratory rate blood pressure 139/62. HEENT: Atraumatic, normocephalic. Oral mucosa is moist NECK: Supple. CARDIOVASCULAR: S1, S2 heard. Rate and rhythm regular. RESPIRATORY: Clear to auscultation. GASTROINTESTINAL: Abdomen is soft. MUSCULOSKELETAL: No tenderness. No edema. DERMATOLOGIC: No skin rash. NEUROLOGIC: Alert and awake and oriented X3. No focal neurologic deficits. Moving all the extremities. PSYCHIATRIC: Mood and affect normal. LABORATORY DATA: Potassium is 3.9, BUN is 33, creatinine 9.4. ASSESSMENT AND PLAN: 1. End-stage renal disease. Continue dialysis. 2. Hypertension. 3. Anemia. 4. Edema. 5. Constipation. We will try lactulose today. 6. We will continue on dialysis as tolerated . Job ID: [id number]
--- NOTE | 2019-12-28 20:42 | PDOC.HOSPP ---
- Subjective Encounter Date: 12/28/19 Encounter Time: 08:00 Subjective: no overnight events. This morning, has no complaints with exception of not having a bowel movement for the past four days. A&O x 3 - Objective Vital Signs & Weight: Vital Signs (12 hours) Temp Pulse Resp BP BP Pulse Ox 12/28/19 19:20 98.7 F 76 16 118/56 L 96 12/28/19 15:52 97.9 F 70 20 135/62 12/28/19 14:30 93 L 12/28/19 11:43 98.3 F 78 20 134/65 12/28/19 09:43 75 141/65 H 12/28/19 09:38 78 141/65 H Weight Admit Weight 196 lb Weight 179 lb 10.828 oz I&O: 12/27/19 12/28/19 12/29/19 06:59 06:59 06:59 Intake Total 200 300 120 Balance 200 300 120 Result Diagrams: 12/26/19 05:18 12/28/19 04:49 Hospitalist ROS - Review of Systems Constitutional: denies: fever, chills, sweats, weakness, malaise, other Respiratory: denies: cough, dry, shortness of breath, hemoptysis, SOB with excertion, pleuritic pain, sputum, wheezing, other Cardiovascular: denies: chest pain, palpitations, orthopnea, paroxysmal noc. dyspnea, edema, light headedness, other Gastrointestinal: denies: nausea, vomiting, abdominal pain, diarrhea, constipation, melena, hematochezia, other Genitourinary: denies: dysuria, frequency, incontinence, hematuria, retention, other - Medication Medications: Active Medications Generic Name Dose Route Start Last Admin Trade Name Freq PRN Reason Stop Dose Admin Acetaminophen 650 mg 12/24/19 05:59 12/26/19 03:37 Tylenol PO 650 mg Q4H PRN Administration Headache/Fever/Mild Pain (1-3) Al Hydroxide/Mg Hydroxide 30 ml 12/26/19 05:39 12/26/19 06:03 Maalox PO 30 ml BID PRN Administration Heartburn or Indigestion Amlodipine Besylate 10 mg 12/25/19 09:00 12/28/19 09:43 Norvasc PO 10 mg DAILY SUN Administration Aspirin 325 mg 12/25/19 09:00 12/28/19 09:38 Aspirin PO 325 mg DAILY SUN Administration Calcium Acetate 1,334 mg 12/24/19 17:00 12/28/19 17:31 Phoslo PO 1,334 mg TID-WM SUN Administration Carvedilol 25 mg 12/24/19 21:00 12/28/19 09:38 Coreg PO 25 mg BID SUN Administration Enoxaparin Sodium 30 mg 12/24/19 09:00 12/28/19 09:43 Lovenox SC 30 mg 09 SUN Administration Hydralazine HCl 50 mg 12/28/19 09:00 12/28/19 09:38 Apresoline PO 50 mg BID SUN Administration Losartan Potassium 50 mg 12/28/19 09:00 12/28/19 09:36 Cozaar PO 50 mg DAILY SUN Administration Ondansetron HCl 4 mg 12/26/19 07:54 12/26/19 08:53 Zofran PO 4 mg Q6H PRN Administration Nausea/Vomiting Pantoprazole Sodium 20 mg 12/27/19 09:00 12/28/19 09:44 Protonix PO 20 mg DAILY SUN Administration Senna/Docusate Sodium 1 tab 12/24/19 21:00 12/28/19 09:45 Senokot S PO 1 tab BID SUN Administration Sodium Chloride 10 ml 12/24/19 09:00 12/28/19 09:44 Flush - Normal Saline IVF Not Given Q12HR SUN - Exam General Appearance: NAD, awake alert Heart: RRR, no murmur, no gallops, no rubs, normal peripheral pulses Respiratory: CTAB, no wheezes, no rales, no ronchi, normal chest expansion, no tachypnea, normal percussion Gastrointestinal: soft, non-tender, non-distended, normal bowel sounds, no palpable masses, no hepatomegaly, no splenomegaly, no bruit Extremities: no edema Psychiatric: A&O x 3 Hosp A/P - Plan #Encephalopathy -remains O x 2; stopped cetirizine due to anticholinergic effects which may precipitate confusion -> A&O x 3 (12/27) -infectious, hypoxic, metabolic etiologies ruled out; keeps having episodes of grossly elevated blood pressure; started losartan in addition to previous regimen -apparently has NIKHIL and hasn't been on CPAP. May result in hypercapnic confusion #constipation -patient reportedly eating well in the past few days but hasnt had bowel movement in past 4 days. baseline is 2 BM/day -started bowel regimen #NIKHIL - CPAP at night ELOS 1 midnight
[2019-12-29 05:31] LABS: Anion Gap 18 mmol/L (10-20); BUN (Urea Nitrogen) 33 mg/dL (8.4-25.7); Calc. Creatinine Clearance 8 mL/min (70-130); Calcium 9.3 mg/dL (7.8-10.44); Carbon Dioxide 27 mmol/L (23-31); Chloride 95 mmol/L (98-107); Estimated GFR-MDRD 6; Glucose 81 mg/dL (83-110); Magnesium 2.2 mg/dL (1.6-2.6); Potassium 3.9 mmol/L (3.5-5.1); Sodium 136 mmol/L (136-145)
[2019-12-29] MEDS ORDERED: Bisacodyl 10 MG SUPP PR SCH (07:00)
[2019-12-29] MEDS: Losartan 25 MG TAB PO SCH (08:04)
[2019-12-29] MEDS: Enoxaparin Sodium 30 MG/0.3 ML SYRINGE SC SCH (08:04)
[2019-12-29] MEDS: Calcium Acetate 667 MG CAP PO SCH ×3 (08:05→17:37)
[2019-12-29] MEDS: hydrALAZINE 25 MG TAB PO SCH (08:05)
[2019-12-29] MEDS: Aspirin 325 MG TAB PO SCH (08:05)
[2019-12-29] MEDS: Carvedilol 25 MG TAB PO SCH (08:05)
[2019-12-29] MEDS: Senokot S 8.6-50 MG TAB PO SCH (08:05)
[2019-12-29] MEDS: Amlodipine 10 MG TAB PO SCH (08:06)
[2019-12-29] MEDS ORDERED: Polyethylene Glycol 3350 17 GM Packet PO SCH (09:00)
--- NOTE | 2019-12-29 10:04 | PQF ---
CLINICAL DOCUMENTATION IMPROVEMENT CLARIFICATION FORM: ICD-10 Updated PLEASE DO AN ADDENDUM TO THE PROGRESS NOTE WITH ANY DOCUMENTATION UPDATES OR ADDITIONS AND CARRY THROUGH TO DC SUMMARY. THANK YOU. DATE: 12/29/2019 ATTN: Dr. Zurita Please exercise your independent, professional judgment in responding to the clarification form. Clinical indicators are provided on the bottom of this form for your review Please check appropriate box(s): [ x] Acute Respiratory Failure: [ x] with Hypoxia[ ] with Hypercapnia [ ] Acute On Chronic Respiratory Failure: [ ] with Hypoxia [ ] with Hypercapnia [ ] Acute Respiratory Failure due to: (etiology) [ ] Chronic Respiratory Failure only [ ] with Hypoxia [ ] with Hypercapnia [ ] Respiratory Insufficiency [ ] Hypoxia [ ] Other diagnosis [ ] Unable to determine In addition, please specify: Present on Admission (POA): [ ] Yes [ ] No [ ] Unable to determine For continuity of documentation, please document condition throughout progress notes and discharge summary. Thank You. CLINICAL INDICATORS - SIGNS / SYMPTOMS / LABS / RESULTS AND LOCATION IN MR ER Record 12/23: Pt was hypoxic satting in the 70s on room air. Went up to 90 on 4L . Were able to wean him down to 2 L and pt stayed in the 90s H&P 12/23: A/P: Altered mental state Plan: hypoxia / covid r/o - O2 supplementation is been provided, arrived at 70% improves initially with 4 now on 2L with 92-94% CT/CTA chest 12/23: "peripheral infiltrates left upper and right lower lobes / bilateral trace pleural effusions" 12/27 (Parminder) -apparently has NIKHIL and hasn't been on CPAP. May result in hypercapnic confusion. RISKS: ED Record 12/23: smokes cigarettes daily H&P 12/23: 74 yo with PMH of ESRD on h/d, CHF and hypertension. Diabetes. A/P: Altered mental state. CXR does seem like copd/ chronic lung disease. 12/25 (Parminder) NIKHIL TREATMENT: Order 12/23: Resp: O2 to keep sats 92% continuous. Order 12/25: Resp: CPAP/BIPAP HS Thank you, Desi (This form is maintained as a part of the permanent medical record) 2015 [employer]. All Rights Reserved Desi Murrell RN, BSN [email or web address] Cell [facility]
--- NOTE | 2019-12-29 12:57 | PRG ---
DATE OF SERVICE: 12/29/2019 SUBJECTIVE: Patient was seen and examined at bedside and overnight events noted. Patient denies any shortness of breath or chest pain or palpitation. No history of nausea or vomiting or diarrhea or fever or chills or cramps. OBJECTIVE: General: This is a well-built male, in no apparent distress. Vital Signs: Temperature . Heart Rate 84. Respiratory rate . Blood pressure 100/76. HEENT: Atraumatic, normocephalic. Oral mucosa is moist. Neck: Supple. Cardiovascular: S1, S2 heard. Rate and rhythm regular. Respiratory: Clear to auscultation. Gastrointestinal: Abdomen is soft. Musculoskeletal: No tenderness. No edema. Dermatologic: No skin rash. Neurologic: Alert and awake and oriented x3. No focal neurologic deficits. Moving all the extremities. Psychiatric: Mood and affect normal. LABORATORY DATA: Potassium 3.9, BUN is 33, creatinine is 9.9. ASSESSMENT AND PLAN: 1. End-stage renal disease. Continue on dialysis as tolerated. 2. Edema. 3. Hypertension. 4. Anemia of chronic disease. Continue on dialysis, Thursday, , Thursday. Follow up. Job ID: [id number]
[2019-12-29 15:55] VITALS: BP 123/56; TEMP 98.7
--- NOTE | 2019-12-30 14:01 | DIS ---
DATE OF ADMISSION: 12/24/2019 DATE OF DISCHARGE: 12/29/2019 HOSPITAL COURSE: Mr. Vazquez is a 74-year-old male with a medical history of end-stage renal disease, on hemodialysis; CHF; and hypertension, who came to the hospital because of altered mental state. The patient was stated to be drowsier and more confused than usual. He was found to have acute encephalopathy that was multifactorial, both to grossly elevated blood pressure (hypertensive encephalopathy) and infectious (had a UTI). The patient progressively improved over few days of inpatient stay. In addition to that, medications that had an anticholinergic effect were discontinued. On the day of discharge, the patient was alert and oriented x3. PHYSICAL EXAMINATION: VITAL SIGNS: Blood pressure 123/56, pulse 72, respiratory rate 16, oxygen saturation 95% on room air, and temperature 98.7. GENERAL: No apparent distress. EYES: PERRL. Anicteric sclerae. ENT: Normocephalic and atraumatic. No oropharyngeal lesions. NECK: Supple. Symmetric. HEART: Regular rate and rhythm. No murmur. No gallops. RESPIRATORY: Clear to auscultation bilaterally. No wheezing or rales. GI: Soft, nontender, nondistended. EXTREMITIES: +1 lower extremity edema that was on admission had resolved on the day of discharge. NEUROLOGIC: Cranial nerves are grossly intact. PSYCHIATRIC: Normal affect. Normal behavior. Oriented x3. DISCHARGE MEDICATIONS: New medications: 1. Acetaminophen. 2. Hydralazine. 3. Losartan. 4. Pantoprazole. 5. MiraLAX p.r.n. Continued medications: 1. Calcium acetate. 2. Carvedilol. 3. Amlodipine. 4. Aspirin. Changed medications: No changed medications. Discontinued medication: Famotidine. Job ID: [id number]
--- NOTE | 2019-12-31 06:47 | PQF ---
[employer] Call Out Operator Crystal Reports Winform ViewerDAGOBERTO JANG JR YARIEL PURCELL [id number] [facility] [id number] CLINICAL DOCUMENTATION CLARIFICATION FORM: POST DISCHARGE Addendum to original discharge summary date: ____ Late entry note date: __ DATE: 12/31/2019 ATTN: Yariel Purcell Please exercise your independent, professional judgment in responding to the clarification form. Clinical indicators are provided on the bottom of this form for your review Please check appropriate box(s): [ x ] Encephalopathy: Type: [ x] Acute [ ] Subacute [ ] Chronic Etiology: [ ] Hypertensive [ ] Toxic [ x ] Drug induced: _anticholinergics _ [ ] Unspecified [ ] Other (please specify) [ ] Other diagnosis [ ] Unable to determine In addition, please specify: Present on Admission (POA): [ x ] Yes [ ] No [ ] Unable to determine For continuity of documentation, please document condition throughout progress notes and discharge summary. Thank You. CLINICAL INDICATORS - SIGNS / SYMPTOMS / LABS Altered mental status, likely secondary to infection, will r/o metabolic causes with CMP, TSH, B12 and ammonia levels - H&P Confusion, infectious vs hypertensive vs hypoxemic encephalopathy - Event note by Yariel Purcell MD Encephalopathy improving, hypoxemia resolved. Continue treating for UTI and hypertension - PN 12/24 by Yariel Purcell MD Encephalopathy improving. Infectious, hypoxic, metabolic etiologies ruled out. Hypertension resolved - PN 12/25 by Yariel Purcell MD Encephalopathy, remains O x2, stopped cetirizine due to anticholinergic effects , which may precipitate confusion. Infectious, hypoxic, metabolic etiologies ruled out; keeps having episodes of grossly elevated blood pressure, started losartan in addition to previous regimen - PN 12/27 by Yariel Purcell MD RISK FACTORS Hypertensive emergency - Event note 12/23 by Yariel Purcell MD Anticholinergic effects with Cetirizine - PN 12/27 by Yariel Purcell MD TREATMENTS: Losartan PO 12/26 to 12/28 - Medications Hydralazine PO 12/26 - Medications Stopping cetirizine - PN 12/27 by Yariel Purcell MD (This form is maintained as a part of the permanent medical record) 2014 [employer]. All Rights Reserved Tyler [email or web address]
--- NOTE | 2019-12-31 14:44 | EKG ---
Test Reason : . Blood Pressure : / mmHG Vent. Rate : 093 BPM Atrial Rate : 093 BPM P-R Int : 158 ms QRS Dur : 086 ms QT Int : 382 ms P-R-T Axes : 078 -30 092 degrees QTc Int : 474 ms Poor data quality, interpretation may be adversely affected Normal sinus rhythm Possible Left atrial enlargement Left axis deviation Anterior infarct , age undetermined Abnormal ECG Confirmed by AYSHA MURRY M.D. ([id number]), offline editor JULIUS VARGHESE ([id number]) on 12/31/2019 2:44:01 PM Referred By: Confirmed By:AYSHA MURRY M.D.
== END 2019-12-29 19:10 | disposition home health service (06) | DRG 77 ==
LOC: ERS 01:35 → 2SW 04:35
PROVIDERS: ADMIT Internal Medicine; ATTEND Internal Medicine
PROC: 5A1D70Z Performance of Urinary Filtration, Intermittent, Less than 6 Hours Per Day (ICD-10-PCS; principal; 2019-12-29)
DX: I67.4 Hypertensive encephalopathy (principal); G92 Toxic encephalopathy; J96.01 Acute respiratory failure with hypoxia; I21.A1 Myocardial infarction type 2; N18.6 End stage renal disease; N39.0 Urinary tract infection, site not specified; I12.0 Hypertensive chronic kidney disease with stage 5 chronic kidney disease or end stage renal disease; E11.22 Type 2 diabetes mellitus with diabetic chronic kidney disease; F17.210 Nicotine dependence, cigarettes, uncomplicated; R79.89 Other specified abnormal findings of blood chemistry; G47.33 Obstructive sleep apnea (adult) (pediatric); D63.1 Anemia in chronic kidney disease; T44.3X5A Adverse effect of other parasympatholytics [anticholinergics and antimuscarinics] and spasmolytics, initial encounter; K59.00 Constipation, unspecified; Z91.14 Patient's other noncompliance with medication regimen
CPT/HCPCS: 36415; 51701; 70450; 71045; 71275; 76705; 80048; 80053; 81003; 81015; 82140; 82553; 82607; 83605; 83690; 83735; 84132; 84443; 84484; 85007; 85025; 85027; 87040; 87086; 87340; 87635; 90935; 93005; 94660; 94760; 96361; 96365; 96374; 96375; 96376; G0257; J0696; J1630; J1650; J2270; J2405; J3370; J3490; Q0162; Q9967; U0003

== ENCOUNTER 2020-10-03 14:30 | Emergency (ER) | payer MEDICARE ==
[2020-10-03 17:32] LABS: #Eosinphils 0.1 thou/uL (0.0-0.7); #Lymphocytes 0.8 thou/uL (1.20-3.40); #Monocytes 0.6 thou/uL (0.11-0.59); #Neutrophils 7.5 thou/uL (1.40-6.50); %Basophils 0.2 % (0.0-1.0); %Eosinophils 1.1 % (0.0-10.0); %Lymphocytes 8.6 % (21.0-51.0); %Monocytes 6.4 % (0.0-10.0); %Neutrophils 83.7 % (42.0-75.0); Hemoglobin 10.5 g/dL (14.0-18.0); Mean Corpuscular HGB CONC 32.8 g/dL (32.0-36.0); Mean Corpuscular Hemoglobin 30.2 pg (27.0-31.0); Platelet Count 124 thou/uL (130-400); RBC Distribution Width 17.5 % (11.5-14.5); Red Blood Cell (RBC) Count 3.48 mill/uL (4.70-6.10); White Blood Cell (WBC) Count 8.9 thou/uL (4.8-10.8)
[2020-10-03 17:53] LABS: ALT (SGPT) 15 U/L (8-55); AST (SGOT) 21 U/L (5-34); Albumin 4.1 g/dL (3.4-4.8); Alkaline Phosphatase 79 U/L (40-110); Anion Gap 20 mmol/L (10-20); BUN (Urea Nitrogen) 39 mg/dL (8.4-25.7); Bilirubin, Total 0.9 mg/dL (0.2-1.2); Calc. Creatinine Clearance 0 mL/min (70-130); Calcium 9.9 mg/dL (7.8-10.44); Carbon Dioxide 28 mmol/L (23-31); Chloride 97 mmol/L (98-107); Globulin 3.4 g/dL (2.4-3.5); Glucose 107 mg/dL (83-110); Protein, Total 7.5 g/dL (5.8-8.1); Sodium 140 mmol/L (136-145)
== END 2020-10-03 18:50 | disposition home or self-care (01) ==
LOC: ERS 14:30
DX: R06.02 Shortness of breath (principal); I13.2 Hypertensive heart and chronic kidney disease with heart failure and with stage 5 chronic kidney disease, or end stage renal disease; I50.9 Heart failure, unspecified; N18.6 End stage renal disease; E11.29 Type 2 diabetes mellitus with other diabetic kidney complication; F17.210 Nicotine dependence, cigarettes, uncomplicated
CPT/HCPCS: 36415; 71045; 80053; 85025

== ENCOUNTER 2020-10-04 08:09 | Emergency (ER) | payer MEDICARE | END 2020-10-04 09:23 | disposition home or self-care (01) | LOC: ERS 08:09 | DX: R06.02 Shortness of breath (principal); E11.22 Type 2 diabetes mellitus with diabetic chronic kidney disease; I13.2 Hypertensive heart and chronic kidney disease with heart failure and with stage 5 chronic kidney disease, or end stage renal disease; I50.9 Heart failure, unspecified; N18.6 End stage renal disease; Z99.2 Dependence on renal dialysis; F17.210 Nicotine dependence, cigarettes, uncomplicated; Z79.82 Long term (current) use of aspirin; Z79.899 Other long term (current) drug therapy | CPT/HCPCS: 99281 ==

== ENCOUNTER 2021-01-03 11:08 | Emergency (ER) | payer MEDICARE ==
[2021-01-03 12:00] LABS: #Eosinphils 0.4 thou/uL (0.0-0.7); #Lymphocytes 0.9 thou/uL (1.20-3.40); #Monocytes 0.7 thou/uL (0.11-0.59); #Neutrophils 4.3 thou/uL (1.40-6.50); %Basophils 0.7 % (0.0-1.0); %Eosinophils 5.5 % (0.0-10.0); %Lymphocytes 14.7 % (21.0-51.0); %Monocytes 11.1 % (0.0-10.0); Hemoglobin 12.7 g/dL (14.0-18.0); Mean Corpuscular HGB CONC 30.5 g/dL (32.0-36.0); Mean Corpuscular Hemoglobin 28.3 pg (27.0-31.0); Mean Corpuscular Volume 92.7 fL (78.0-98.0); Mean Platelet Volume 10.5 fL (7.4-10.4); Platelet Count 145 thou/uL (130-400); RBC Distribution Width 16.2 % (11.5-14.5); Red Blood Cell (RBC) Count 4.47 mill/uL (4.70-6.10); White Blood Cell (WBC) Count 6.4 thou/uL (4.8-10.8)
[2021-01-03 12:16] LABS: Phosphorus 6.1 mg/dL (2.3-4.7)
[2021-01-03 12:20] LABS: ALT (SGPT) 10 U/L (8-55); AST (SGOT) 13 U/L (5-34); Albumin 3.7 g/dL (3.4-4.8); Alkaline Phosphatase 75 U/L (40-110); Anion Gap 16 mmol/L (10-20); BUN (Urea Nitrogen) 35 mg/dL (8.4-25.7); Bilirubin, Total 0.5 mg/dL (0.2-1.2); Calc. Creatinine Clearance 0 mL/min (70-130); Calcium 9.7 mg/dL (7.8-10.44); Carbon Dioxide 27 mmol/L (23-31); Chloride 101 mmol/L (98-107); Glucose 117 mg/dL (83-110); Lipase 17 U/L (8-78); Potassium 3.4 mmol/L (3.5-5.1); Protein, Total 6.7 g/dL (5.8-8.1); Sodium 141 mmol/L (136-145)
== END 2021-01-03 15:19 | disposition home or self-care (01) ==
LOC: ERS 11:08
DX: R19.7 Diarrhea, unspecified (principal); I13.2 Hypertensive heart and chronic kidney disease with heart failure and with stage 5 chronic kidney disease, or end stage renal disease; E11.22 Type 2 diabetes mellitus with diabetic chronic kidney disease; N18.6 End stage renal disease; F17.290 Nicotine dependence, other tobacco product, uncomplicated; I50.9 Heart failure, unspecified
CPT/HCPCS: 36415; 74177; 80053; 82274; 83630; 83690; 83735; 84100; 85025; 87045; 87046; 87324; 87328; 87329; 87427; 87449; 87493

== ENCOUNTER 2021-01-07 13:52 | Emergency (ER) | payer MEDICARE ==
[2021-01-07 16:01] LABS: #Eosinphils 0.5 thou/uL (0.0-0.7); #Lymphocytes 1.5 thou/uL (1.20-3.40); #Monocytes 0.9 thou/uL (0.11-0.59); #Neutrophils 4.2 thou/uL (1.40-6.50); %Basophils 0.2 % (0.0-1.0); %Eosinophils 7.1 % (0.0-10.0); %Monocytes 12.4 % (0.0-10.0); %Neutrophils 59.2 % (42.0-75.0); Hemoglobin 12.2 g/dL (14.0-18.0); Mean Corpuscular HGB CONC 30.9 g/dL (32.0-36.0); Mean Corpuscular Hemoglobin 28.5 pg (27.0-31.0); Mean Corpuscular Volume 92.5 fL (78.0-98.0); Mean Platelet Volume 10.2 fL (7.4-10.4); Platelet Count 159 thou/uL (130-400); RBC Distribution Width 15.9 % (11.5-14.5); Red Blood Cell (RBC) Count 4.29 mill/uL (4.70-6.10); White Blood Cell (WBC) Count 7.1 thou/uL (4.8-10.8)
[2021-01-07 16:15] LABS: ALT (SGPT) 18 U/L (8-55); AST (SGOT) 20 U/L (5-34); Albumin 3.7 g/dL (3.4-4.8); Alkaline Phosphatase 85 U/L (40-110); Anion Gap 15 mmol/L (10-20); BUN (Urea Nitrogen) 32 mg/dL (8.4-25.7); Bilirubin, Total 0.4 mg/dL (0.2-1.2); Calc. Creatinine Clearance 0 mL/min (70-130); Calcium 9.8 mg/dL (7.8-10.44); Carbon Dioxide 30 mmol/L (23-31); Chloride 97 mmol/L (98-107); Glucose 91 mg/dL (83-110); Potassium 3.6 mmol/L (3.5-5.1); Protein, Total 6.7 g/dL (5.8-8.1); Sodium 138 mmol/L (136-145)
== END 2021-01-07 17:14 | disposition home or self-care (01) ==
LOC: ERS 13:52
DX: K92.2 Gastrointestinal hemorrhage, unspecified (principal); A04.72 Enterocolitis due to Clostridium difficile, not specified as recurrent; I13.2 Hypertensive heart and chronic kidney disease with heart failure and with stage 5 chronic kidney disease, or end stage renal disease; I50.9 Heart failure, unspecified; N18.6 End stage renal disease; Z99.2 Dependence on renal dialysis; F17.210 Nicotine dependence, cigarettes, uncomplicated; Z79.899 Other long term (current) drug therapy
CPT/HCPCS: 36415; 80053; 82274; 85025; 99284

== ENCOUNTER 2021-01-22 17:55 | Inpatient (IN) | payer MEDICARE ==
[2021-01-22] MEDS ORDERED: Nitroglycerin 2% Ointment 1 INCH/1 GM Packet ONE (18:16)
[2021-01-22] MEDS ORDERED: hydrALAZINE 20 MG/ML VIAL ONE (18:16)
[2021-01-22] MEDS ORDERED: Lorazepam 2 MG/ML VIAL ONE (18:57)
[2021-01-22 18:59] LABS: #Eosinphils 0.2 thou/uL (0.0-0.7); #Lymphocytes 1.3 thou/uL (1.20-3.40); #Neutrophils 12.1 thou/uL (1.40-6.50); %Basophils 0.3 % (0.0-1.0); %Eosinophils 1.1 % (0.0-10.0); %Lymphocytes 8.9 % (21.0-51.0); %Monocytes 6.6 % (0.0-10.0); %Neutrophils 83.2 % (42.0-75.0); Hemoglobin 14.2 g/dL (14.0-18.0); Mean Corpuscular HGB CONC 30.7 g/dL (32.0-36.0); Mean Corpuscular Hemoglobin 29.2 pg (27.0-31.0); Mean Corpuscular Volume 95.1 fL (78.0-98.0); Mean Platelet Volume 10.2 fL (7.4-10.4); Platelet Count 166 thou/uL (130-400); RBC Distribution Width 16.7 % (11.5-14.5); Red Blood Cell (RBC) Count 4.86 mill/uL (4.70-6.10); White Blood Cell (WBC) Count 14.5 thou/uL (4.8-10.8)
[2021-01-22 19:07] LABS: SARS-CoV-2 NAA Rapid Test Not Detected (NotDetected)
[2021-01-22 19:29] LABS: ALT (SGPT) 27 U/L (8-55); AST (SGOT) 24 U/L (5-34); Alkaline Phosphatase 103 U/L (40-110); Anion Gap 18 mmol/L (10-20); BUN (Urea Nitrogen) 34 mg/dL (8.4-25.7); Bilirubin, Total 0.7 mg/dL (0.2-1.2); CK (CPK) 33 U/L (30-200); Calc. Creatinine Clearance 0 mL/min (70-130); Calcium 9.8 mg/dL (7.8-10.44); Carbon Dioxide 28 mmol/L (23-31); Chloride 96 mmol/L (98-107); Globulin 3.8 g/dL (2.4-3.5); Glucose 93 mg/dL (83-110); Lipase 11 U/L (8-78); Potassium 4.5 mmol/L (3.5-5.1); Protein, Total 7.8 g/dL (5.8-8.1); Sodium 137 mmol/L (136-145)
[2021-01-22 19:47] LABS: CKMB 1.6 ng/mL (0-6.6)
[2021-01-22 21:54] LABS: Actual Bicarbonate (HCO3a) 32.5 mEq/L (22-28); Analyzer IN Cardio ER; Base Excess (BEa) 4.2 mEq/L (-2.0 to +3.0); Calcium, Ionized (arterial) 1.15 mmol/L (1.12-1.30); Carboxyhemoglobin (COHb) 0.9 gm% (0.0-3.0); Hemoglobin (Hb) 13.3 g/dL (14.0-18.0); O2 Tension (PaO2), arterial 253.5 mmHg (> 70.0); pH, Arterial 7.31 (7.35-7.45)
[2021-01-22 21:55] LABS: CO2 Tension 66.8 mmHg (35.0-45.0)
[2021-01-22 21:56] LABS: Puncture Site RRA
[2021-01-22] MEDS ORDERED: Labetalol HCl 100 MG/20 ML VIAL SLOW IVP PRN (23:38)
[2021-01-22] MEDS ORDERED: Albuterol Sulfate 2.5 mg/3 ml Neb NEB PRN (23:39)
[2021-01-23] MEDS: cefTRIAXone\\ROCEPHIN 1 GM in Sodium Chloride 0.9% 100 ML IVPB SCH (00:47)
[2021-01-23] MEDS: Azithromycin 500 MG in Sodium Chloride 0.9% 250 ML 250 ML IVPB SCH (00:54)
[2021-01-23 00:55] LABS: Troponin I 0.069 ng/mL (< 0.028)
[2021-01-23] MEDS: hydrALAZINE 20 MG/ML VIAL SLOW IVP PRN ×2 (01:34→06:11)
[2021-01-23] MEDS ORDERED: Albuterol Sulfate 2.5 mg/3 ml Neb NEB SCH (02:30)
[2021-01-23 04:05] LABS: #Lymphocytes 0.5 thou/uL (1.20-3.40); #Monocytes 0.6 thou/uL (0.11-0.59); #Neutrophils 7.3 thou/uL (1.40-6.50); %Basophils 0.4 % (0.0-1.0); %Eosinophils 0.2 % (0.0-10.0); %Lymphocytes 6.1 % (21.0-51.0); %Monocytes 6.9 % (0.0-10.0); %Neutrophils 86.4 % (42.0-75.0); Hemoglobin 12.6 g/dL (14.0-18.0); Mean Corpuscular HGB CONC 32.4 g/dL (32.0-36.0); Mean Corpuscular Hemoglobin 30.2 pg (27.0-31.0); Mean Corpuscular Volume 93.4 fL (78.0-98.0); Mean Platelet Volume 11.4 fL (7.4-10.4); Platelet Count 138 thou/uL (130-400); Red Blood Cell (RBC) Count 4.16 mill/uL (4.70-6.10); White Blood Cell (WBC) Count 8.5 thou/uL (4.8-10.8)
[2021-01-23 04:19] LABS: Troponin I 0.054 ng/mL (< 0.028)
[2021-01-23 06:34] LABS: Anion Gap 20 mmol/L (10-20); BUN (Urea Nitrogen) 37 mg/dL (8.4-25.7); Calc. Creatinine Clearance 8 mL/min (70-130); Calcium 9.6 mg/dL (7.8-10.44); Carbon Dioxide 23 mmol/L (23-31); Chloride 97 mmol/L (98-107); Glucose 85 mg/dL (83-110); Potassium 5.1 mmol/L (3.5-5.1); Sodium 135 mmol/L (136-145)
[2021-01-23] MEDS: hydrALAZINE 25 MG TAB PO SCH ×2 (07:59→20:10)
[2021-01-23] MEDS: Amlodipine 10 MG TAB PO SCH (08:00)
[2021-01-23] MEDS: predniSONE 20 MG TAB PO SCH (08:00)
[2021-01-23] MEDS: Carvedilol 25 MG TAB PO SCH ×2 (08:00→20:11)
[2021-01-23] MEDS: Aspirin 325 MG TAB PO SCH (09:05)
[2021-01-23] MEDS: Famotidine 20 MG TAB PO SCH (09:05)
[2021-01-23] MEDS: Heparin 5,000 UNITS/ML VIAL SC SCH ×3 (09:05→20:11)
[2021-01-23] MEDS: Docusate 100 MG CAP PO SCH (09:05)
[2021-01-23] MEDS: Loratadine 10 MG TAB PO SCH (09:05)
[2021-01-23 11:32] LABS: HBSAg Index 0.35 S/CO (0-0.99); Hep B Surf Ag Non-Reactive S/CO (NonReactive)
[2021-01-23] MEDS ORDERED: Polyethylene Glycol 3350 17 GM Packet PO PRN (20:51)
[2021-01-23] MEDS ORDERED: Calcium Acetate 667 MG CAP PO PRN (21:06)
[2021-01-24] MEDS: Azithromycin 500 MG in Sodium Chloride 0.9% 250 ML 250 ML IVPB SCH ×2 (00:13→23:51)
[2021-01-24 03:53] LABS: Anion Gap 20 mmol/L (10-20); BUN (Urea Nitrogen) 41 mg/dL (8.4-25.7); Calc. Creatinine Clearance 9 mL/min (70-130); Calcium 8.7 mg/dL (7.8-10.44); Carbon Dioxide 23 mmol/L (23-31); Chloride 96 mmol/L (98-107); Glucose 150 mg/dL (83-110); Potassium 4.6 mmol/L (3.5-5.1); Sodium 134 mmol/L (136-145)
[2021-01-24] MEDS: cefTRIAXone\\ROCEPHIN 1 GM in Sodium Chloride 0.9% 100 ML IVPB SCH (05:46)
[2021-01-24 07:16] VITALS: BMI 21.2
[2021-01-24] MEDS: predniSONE 20 MG TAB PO SCH (07:28)
[2021-01-24] MEDS: hydrALAZINE 25 MG TAB PO SCH ×2 (07:29→20:58)
[2021-01-24] MEDS: Carvedilol 25 MG TAB PO SCH ×2 (07:29→20:59)
[2021-01-24] MEDS: Famotidine 20 MG TAB PO SCH (07:29)
[2021-01-24] MEDS: Calcium Acetate 667 MG CAP PO SCH ×3 (07:29→16:13)
[2021-01-24] MEDS: Docusate 100 MG CAP PO SCH (07:29)
[2021-01-24] MEDS: Loratadine 10 MG TAB PO SCH (07:30)
[2021-01-24] MEDS: Amlodipine 10 MG TAB PO SCH (07:30)
[2021-01-24] MEDS: Losartan 25 MG TAB PO SCH (07:30)
[2021-01-24] MEDS: Aspirin 325 MG TAB PO SCH (07:30)
[2021-01-24] MEDS: Heparin 5,000 UNITS/ML VIAL SC SCH ×3 (07:31→20:59)
[2021-01-24] MEDS: Mometasone 200 MCG/Formoterol 5 MCG 120 PUFF INHALER INH SCH ×2 (08:22→18:15)
[2021-01-24] MEDS ORDERED: Melatonin 3 MG TAB PO PRN (08:44)
[2021-01-24] MEDS ORDERED: NIFEdipine XL 60 MG TAB PO SCH (09:00)
[2021-01-24] MEDS: hydrALAZINE 20 MG/ML VIAL SLOW IVP PRN (16:20)
[2021-01-25] MEDS ORDERED: cefTRIAXone\\ROCEPHIN 1 GM in Sodium Chloride 0.9% 100 ML IVPB SCH (06:00)
[2021-01-25] MEDS: Mometasone 200 MCG/Formoterol 5 MCG 120 PUFF INHALER INH SCH (07:13)
[2021-01-25] MEDS: Calcium Acetate 667 MG CAP PO SCH ×2 (08:32→11:33)
[2021-01-25] MEDS: Aspirin 325 MG TAB PO SCH (08:33)
[2021-01-25] MEDS: predniSONE 20 MG TAB PO SCH (08:33)
[2021-01-25] MEDS: hydrALAZINE 25 MG TAB PO SCH (08:33)
[2021-01-25] MEDS: Loratadine 10 MG TAB PO SCH (08:34)
[2021-01-25] MEDS: Famotidine 20 MG TAB PO SCH (08:34)
[2021-01-25] MEDS: Heparin 5,000 UNITS/ML VIAL SC SCH (08:34)
[2021-01-25] MEDS: Losartan 25 MG TAB PO SCH (08:35)
[2021-01-25] MEDS: Docusate 100 MG CAP PO SCH (08:35)
[2021-01-25] MEDS: Carvedilol 25 MG TAB PO SCH (08:35)
[2021-01-25] MEDS ORDERED: NIFEdipine XL 90 MG TAB PO SCH (09:00)
[2021-01-25 11:40] VITALS: BP 128/63; TEMP 98.5
[2021-01-25] MEDS: Azithromycin 500 MG in Sodium Chloride 0.9% 250 ML 250 ML IVPB SCH (12:17)
[2021-01-25] MEDS ORDERED: Carvedilol 3.125 MG TAB PO SCH (21:00)
[2021-01-26] MEDS ORDERED: Lisinopril 5 MG TAB PO SCH (09:00)
== END 2021-01-25 13:42 | disposition home or self-care (01) | DRG 871 ==
LOC: ERS 17:55 → CCU 22:11 → 2NO 01-24 10:18
PROVIDERS: ADMIT Family Medicine; ATTEND Family Medicine
PROC: 5A1D70Z Performance of Urinary Filtration, Intermittent, Less than 6 Hours Per Day (ICD-10-PCS; 2021-01-20)
PROC: 5A09357 Assistance with Respiratory Ventilation, Less than 24 Consecutive Hours, Continuous Positive Airway Pressure (ICD-10-PCS; principal; 2021-01-22)
DX: A41.9 Sepsis, unspecified organism (principal); J18.9 Pneumonia, unspecified organism; N18.6 End stage renal disease; G93.41 Metabolic encephalopathy; J96.01 Acute respiratory failure with hypoxia; J96.02 Acute respiratory failure with hypercapnia; I50.23 Acute on chronic systolic (congestive) heart failure; I13.2 Hypertensive heart and chronic kidney disease with heart failure and with stage 5 chronic kidney disease, or end stage renal disease; J44.1 Chronic obstructive pulmonary disease with (acute) exacerbation; E87.0 Hyperosmolality and hypernatremia; I42.0 Dilated cardiomyopathy; J44.0 Chronic obstructive pulmonary disease with (acute) lower respiratory infection; R65.20 Severe sepsis without septic shock; Z20.822 Contact with and (suspected) exposure to COVID-19; F17.210 Nicotine dependence, cigarettes, uncomplicated; I16.0 Hypertensive urgency; R77.8 Other specified abnormalities of plasma proteins; K21.9 Gastro-esophageal reflux disease without esophagitis; E11.22 Type 2 diabetes mellitus with diabetic chronic kidney disease; D63.1 Anemia in chronic kidney disease; Z99.2 Dependence on renal dialysis; Z88.5 Allergy status to narcotic agent; Z88.0 Allergy status to penicillin; Z79.899 Other long term (current) drug therapy; Z79.82 Long term (current) use of aspirin
CPT/HCPCS: 36415; 36600; 71045; 71275; 80048; 80053; 82550; 82553; 82805; 83605; 83690; 83880; 84145; 84484; 85025; 85379; 87040; 87340; 90935; 93005; 93306; 93798; 94640; 94660; 96374; 96375; G0257; J0360; J0456; J0696; J1644; J2060; J3490; J7050; J7512; J7620; Q9967; U0002; U0005

== ENCOUNTER 2021-08-11 22:39 | Inpatient (IN) | payer MEDICARE ==
[2021-08-11] MEDS ORDERED: cefTRIAXone\\ROCEPHIN 1 GM VIAL ONE (23:18)
[2021-08-12 00:13] LABS: #Basophils 0.1 thou/uL (0.0-0.2); #Eosinphils 0.2 thou/uL (0.0-0.7); #Lymphocytes 1.1 thou/uL (1.20-3.40); #Monocytes 1.4 thou/uL (0.11-0.59); #Neutrophils 12.4 thou/uL (1.40-6.50); %Basophils 0.5 % (0.0-1.0); %Lymphocytes 7.2 % (21.0-51.0); %Monocytes 9.1 % (0.0-10.0); %Neutrophils 82.1 % (42.0-75.0); Hemoglobin 12.4 g/dL (14.0-18.0); Mean Corpuscular HGB CONC 31.2 g/dL (32.0-36.0); Mean Corpuscular Hemoglobin 29.9 pg (27.0-31.0); Mean Corpuscular Volume 95.8 fL (78.0-98.0); Mean Platelet Volume 8.3 fL (7.4-10.4); Platelet Count 236 thou/uL (130-400); RBC Distribution Width 13.4 % (11.5-14.5); Red Blood Cell (RBC) Count 4.14 mill/uL (4.70-6.10); White Blood Cell (WBC) Count 15.1 thou/uL (4.8-10.8)
[2021-08-12 00:29] LABS: SARS-CoV-2 NAA Rapid Test Not Detected (NotDetected)
[2021-08-12 00:34] LABS: ALT (SGPT) 17 U/L (8-55); AST (SGOT) 16 U/L (5-34); Albumin 3.3 g/dL (3.4-4.8); Alkaline Phosphatase 106 U/L (40-110); Anion Gap 20 mmol/L (10-20); BUN (Urea Nitrogen) 59 mg/dL (8.4-25.7); Bilirubin, Total 0.6 mg/dL (0.2-1.2); Calc. Creatinine Clearance 0 mL/min (70-130); Calcium 9.7 mg/dL (7.8-10.44); Carbon Dioxide 24 mmol/L (23-31); Chloride 94 mmol/L (98-107); Globulin 4.3 g/dL (2.4-3.5); Glucose 78 mg/dL (83-110); Protein, Total 7.6 g/dL (5.8-8.1); Sodium 133 mmol/L (136-145)
[2021-08-12] MEDS ORDERED: Azithromycin 500 MG VIAL ONE (00:41)
[2021-08-12] MEDS ORDERED: Nitroglycerin 2% Ointment 1 INCH/1 GM Packet ONE (00:41)
[2021-08-12 00:55] LABS: CKMB 1.5 ng/mL (0-6.6)
[2021-08-12] MEDS ORDERED: Acetaminophen 650 MG Suppository PR PRN (01:11)
[2021-08-12] MEDS ORDERED: Acetaminophen 325 MG TAB PO PRN (01:11)
[2021-08-12] MEDS ORDERED: predniSONE 20 MG TAB PO SCH (01:15)
[2021-08-12] MEDS ORDERED: hydrALAZINE 20 MG/ML VIAL SLOW IVP PRN (01:55)
[2021-08-12] MEDS ORDERED: predniSONE 20 MG TAB ONE (02:06)
[2021-08-12] MEDS ORDERED: Senokot S 8.6-50 MG TAB PO PRN (02:15)
[2021-08-12 03:06] VITALS: BMI 22.4
[2021-08-12] MEDS ORDERED: guaiFENesin ER 600 MG TAB PO PRN (06:29)
[2021-08-12 07:24] LABS: Hemoglobin A1c 4.1 % (4.0-6.0)
[2021-08-12] MEDS ORDERED: Carvedilol 25 MG TAB PO SCH (08:00)
[2021-08-12] MEDS: Mometasone 200 MCG/Formoterol 5 MCG 120 PUFF INHALER INH SCH ×2 (08:03→18:24)
[2021-08-12] MEDS ORDERED: Mometasone 200 MCG/Formoterol 5 MCG 120 PUFF INHALER ONE (08:08)
[2021-08-12] MEDS ORDERED: Cetirizine HCl 10 MG TAB PO SCH (09:00)
[2021-08-12] MEDS ORDERED: hydrALAZINE 25 MG TAB PO SCH (09:00)
[2021-08-12] MEDS ORDERED: Non-Formulary Item 1 EACH (Budesonide-Formoterol [Symbicort 160-4.5] 160 MG/4.5 MG Aer) INH SCH (09:00)
[2021-08-12] MEDS ORDERED: Aspirin Chewable 81 MG TAB ONE (09:16)
[2021-08-12] MEDS ORDERED: Famotidine 20 MG TAB ONE (09:16)
[2021-08-12] MEDS: Heparin 5,000 UNITS/ML VIAL SC SCH ×3 (09:21→21:12)
[2021-08-12] MEDS ORDERED: Heparin 10,000 UNITS/ 10 ML VIAL ONE (09:26)
[2021-08-12] MEDS: Famotidine 20 MG TAB PO SCH (09:33)
[2021-08-12] MEDS: Loratadine 10 MG TAB PO SCH (09:33)
[2021-08-12] MEDS: Aspirin Chewable 81 MG TAB PO SCH (09:33)
[2021-08-12] MEDS: hydrALAZINE 25 MG TAB PO SCH ×3 (09:35→21:11)
[2021-08-12] MEDS: NIFEdipine XL 90 MG TAB PO SCH (09:35)
[2021-08-12] MEDS ORDERED: Dextrose 5% in Water 1,000 ML IV PRN (17:18)
[2021-08-12] MEDS ORDERED: Dextrose 50% Abboject 50 ML SYRINGE SLOW IVP PRN (17:18)
[2021-08-12] MEDS: HumaLOG 300 UNITS/3 ML VIAL SC PRN (17:46)
[2021-08-12] MEDS: cefTRIAXone\\ROCEPHIN 1 GM in Sodium Chloride 0.9% 100 ML IVPB SCH (23:16)
[2021-08-13] MEDS ORDERED: Melatonin 3 MG TAB PO PRN (00:57)
[2021-08-13 01:51] LABS: HBSAg Index 0.23 S/CO (0-0.99); Hep B Surf Ag Non-Reactive S/CO (NonReactive)
[2021-08-13 05:15] LABS: #Basophils 0.1 thou/uL (0.0-0.2); #Eosinphils 0.1 thou/uL (0.0-0.7); #Lymphocytes 1.2 thou/uL (1.20-3.40); %Basophils 0.4 % (0.0-1.0); %Eosinophils 0.9 % (0.0-10.0); %Lymphocytes 8.4 % (21.0-51.0); %Monocytes 7.2 % (0.0-10.0); %Neutrophils 83.1 % (42.0-75.0); Hemoglobin 10.9 g/dL (14.0-18.0); Mean Corpuscular HGB CONC 30.8 g/dL (32.0-36.0); Mean Corpuscular Hemoglobin 30.1 pg (27.0-31.0); Mean Corpuscular Volume 97.6 fL (78.0-98.0); Mean Platelet Volume 8.1 fL (7.4-10.4); Platelet Count 317 thou/uL (130-400); RBC Distribution Width 13.4 % (11.5-14.5); Red Blood Cell (RBC) Count 3.62 mill/uL (4.70-6.10); White Blood Cell (WBC) Count 14.4 thou/uL (4.8-10.8)
[2021-08-13 05:36] LABS: Anion Gap 14 mmol/L (10-20); BUN (Urea Nitrogen) 41 mg/dL (8.4-25.7); Calc. Creatinine Clearance 9 mL/min (70-130); Calcium 9.5 mg/dL (7.8-10.44); Carbon Dioxide 29 mmol/L (23-31); Chloride 98 mmol/L (98-107); Glucose 93 mg/dL (83-110); Potassium 4.6 mmol/L (3.5-5.1); Sodium 136 mmol/L (136-145)
[2021-08-13] MEDS: Mometasone 200 MCG/Formoterol 5 MCG 120 PUFF INHALER INH SCH ×2 (07:22→18:41)
[2021-08-13] MEDS: Heparin 5,000 UNITS/ML VIAL SC SCH ×3 (08:49→20:17)
[2021-08-13] MEDS: Azithromycin 250 MG TAB PO SCH (08:51)
[2021-08-13] MEDS: hydrALAZINE 25 MG TAB PO SCH ×3 (08:52→20:12)
[2021-08-13] MEDS: NIFEdipine XL 90 MG TAB PO SCH (08:52)
[2021-08-13] MEDS: Loratadine 10 MG TAB PO SCH (08:52)
[2021-08-13] MEDS: Aspirin Chewable 81 MG TAB PO SCH (08:52)
[2021-08-13] MEDS: predniSONE 20 MG TAB PO SCH (08:52)
[2021-08-13] MEDS: Famotidine 20 MG TAB PO SCH (08:52)
[2021-08-13] MEDS ORDERED: Polyethylene Glycol 3350 17 GM Packet PO PRN (11:10)
[2021-08-13] MEDS: HumaLOG 300 UNITS/3 ML VIAL SC PRN (18:02)
[2021-08-13] MEDS: cefTRIAXone\\ROCEPHIN 1 GM in Sodium Chloride 0.9% 100 ML IVPB SCH (23:17)
[2021-08-14 04:56] LABS: #Lymphocytes 0.6 thou/uL (1.20-3.40); #Monocytes 0.5 thou/uL (0.11-0.59); #Neutrophils 9.1 thou/uL (1.40-6.50); %Eosinophils 0.1 % (0.0-10.0); %Lymphocytes 5.8 % (21.0-51.0); %Monocytes 4.6 % (0.0-10.0); %Neutrophils 89.6 % (42.0-75.0); Hemoglobin 10.1 g/dL (14.0-18.0); Mean Corpuscular HGB CONC 31.3 g/dL (32.0-36.0); Mean Corpuscular Hemoglobin 30.3 pg (27.0-31.0); Mean Corpuscular Volume 96.7 fL (78.0-98.0); Mean Platelet Volume 8.3 fL (7.4-10.4); Platelet Count 325 thou/uL (130-400); RBC Distribution Width 13.4 % (11.5-14.5); Red Blood Cell (RBC) Count 3.35 mill/uL (4.70-6.10); White Blood Cell (WBC) Count 10.2 thou/uL (4.8-10.8)
[2021-08-14 05:32] LABS: Anion Gap 19 mmol/L (10-20); BUN (Urea Nitrogen) 54 mg/dL (8.4-25.7); Calc. Creatinine Clearance 7 mL/min (70-130); Calcium 9.6 mg/dL (7.8-10.44); Carbon Dioxide 25 mmol/L (23-31); Chloride 94 mmol/L (98-107); Glucose 162 mg/dL (83-110); Potassium 5.1 mmol/L (3.5-5.1); Sodium 133 mmol/L (136-145)
[2021-08-14] MEDS: Mometasone 200 MCG/Formoterol 5 MCG 120 PUFF INHALER INH SCH (07:08)
[2021-08-14] MEDS: predniSONE 20 MG TAB PO SCH (08:21)
[2021-08-14] MEDS: hydrALAZINE 25 MG TAB PO SCH (08:21)
[2021-08-14] MEDS: Heparin 5,000 UNITS/ML VIAL SC SCH (08:21)
[2021-08-14] MEDS ORDERED: Heparin 10,000 UNITS/ 10 ML VIAL ONE (09:29)
[2021-08-14] MEDS: Famotidine 20 MG TAB PO SCH (11:23)
[2021-08-14] MEDS: Azithromycin 250 MG TAB PO SCH (11:23)
[2021-08-14] MEDS: NIFEdipine XL 90 MG TAB PO SCH (11:23)
[2021-08-14] MEDS: Aspirin Chewable 81 MG TAB PO SCH (11:23)
[2021-08-14 11:28] VITALS: BP 165/77; TEMP 97.5
[2021-08-14] MEDS ORDERED: Cefdinir 300 MG CAP PO SCH (12:30)
[2021-08-15] MEDS ORDERED: Loratadine 10 MG TAB PO SCH (09:00)
== END 2021-08-14 14:40 | disposition home or self-care (01) | DRG 871 ==
LOC: ERS 22:39 → ERHOLD 08-12 00:41 → 2NO 08-12 10:16
PROVIDERS: ADMIT Family Medicine; ATTEND Family Medicine
DX: A41.9 Sepsis, unspecified organism (principal); N18.6 End stage renal disease; Z20.822 Contact with and (suspected) exposure to COVID-19; J44.1 Chronic obstructive pulmonary disease with (acute) exacerbation; J44.0 Chronic obstructive pulmonary disease with (acute) lower respiratory infection; I13.2 Hypertensive heart and chronic kidney disease with heart failure and with stage 5 chronic kidney disease, or end stage renal disease; K21.9 Gastro-esophageal reflux disease without esophagitis; G47.33 Obstructive sleep apnea (adult) (pediatric); E11.22 Type 2 diabetes mellitus with diabetic chronic kidney disease; I50.9 Heart failure, unspecified; R79.89 Other specified abnormal findings of blood chemistry; Z87.891 Personal history of nicotine dependence; Z88.5 Allergy status to narcotic agent; Z88.0 Allergy status to penicillin; Z79.82 Long term (current) use of aspirin; Z79.51 Long term (current) use of inhaled steroids; Z79.899 Other long term (current) drug therapy; Z99.2 Dependence on renal dialysis
CPT/HCPCS: 36415; 36416; 71045; 80048; 80053; 82553; 83036; 83605; 83880; 84145; 84484; 85025; 87040; 87340; 90935; 93005; 94640; 94760; 96365; 96375; G0257; J0456; J0696; J1644; J1815; J3490; J7512; J7620; U0002